=== PATIENT | female | born 1935 | race Two or more races ===

== ENCOUNTER 2023-06-10 13:44 | Emergency (ER) | payer OTHER ==
[~2023-06-10] VITALS: Ht 157.5 cm; Wt 67.1 kg
[2023-06-10] MEDS ORDERED: METOPROLOL SUCC25 MG PO (14:05)
[2023-06-10] MEDS ORDERED: RAYOS5 MG PO (14:05)
[2023-06-10] MEDS ORDERED: LOSARTAN POTASS25 MG PO (14:05)
[2023-06-10] MEDS ORDERED: LOSARTAN POTASS50 MG PO (14:06)
[2023-06-10] MEDS ORDERED: LEVOTHYROXINE88 MC1 PO (14:07)
[2023-06-10] MEDS ORDERED: LIPITOR40 M1 PO (14:07)
== END 2023-06-10 18:08 | disposition home or self-care (01) ==
LOC: ER 13:44
PROVIDERS: General Practice
DX: J06.9 Acute upper respiratory infection, unspecified (principal); Z20.822 Contact with and (suspected) exposure to COVID-19

== ENCOUNTER 2023-08-21 13:30 | Outpatient (CLI) | payer OTHER ==
[~2023-08-21 13:30] MED LIST: LEVOTHYROXINE88 MC1 PO; LIPITOR40 M1 PO; LOSARTAN POTASS25 MG PO; LOSARTAN POTASS50 MG PO; METOPROLOL SUCC25 MG PO; RAYOS5 MG PO
== END 2023-08-21 13:33 | disposition home or self-care (01) ==
LOC: TOM 13:30
PROVIDERS: ATTEND Physical Medicine & Rehabilitation
DX: M54.2 Cervicalgia (principal); M48.02 Spinal stenosis, cervical region; M06.9 Rheumatoid arthritis, unspecified; M32.9 Systemic lupus erythematosus, unspecified

== ENCOUNTER 2023-12-08 11:18 | Outpatient (CLI) | payer OTHER | END 2023-12-08 11:23 | disposition home or self-care (01) | LOC: RAD 11:18 | PROVIDERS: ATTEND Physical Medicine & Rehabilitation | DX: M54.2 Cervicalgia (principal); M54.6 Pain in thoracic spine; M54.50 Low back pain, unspecified ==

== ENCOUNTER 2024-11-27 12:38 | Inpatient (IN) | payer OTHER ==
[~2024-11-27] VITALS: Ht 160 cm; Wt 63.5 kg
[2024-11-27] MEDS ORDERED: LEVOFLOXACIN250 MG PO (13:51)
--- NOTE | 2024-11-27 13:58 | NUR ---
PACIENTE ALERTA Y ORIENTADA X3. REFIERE VENIR POR POSIBLE INFECCION DE ORINA. REFIERE MAL OLOR AL ORINAR. ADEMAS REFIERE TENER CELULLITIS EN PIERNA DERECHA LA CUAL RECIBIO CURACION EL BRYANT DE STU CON DR. GILLETTE COSTELLO EL CUAL TAMBIEN ESTA EN TRATAMIENTO DE ANTIBIOTICO. SE ESTIMAN VITALES Y SE UBICA.
[2024-11-27] MEDS ORDERED: VANCOMYCIN HCL 1,000 MG VIAL IV SCH (15:56)
[2024-11-27] MEDS ORDERED: SODIUM CHLORIDE 0.45 % 1,000 ML IV SCH (16:00)
--- NOTE | 2024-11-27 16:06 | NUR ---
SE ORIENTA A PACIENTE SOBRE TRATAMIENTO MEDICO, REFIERE ENTENDER. SE COLECTAN MUESTRAS DE LABORATORIO BAJO MEDIDAS ASEPTICAS. SE COORDINA ALL X. PACIENTE MANEJADA POR .
[2024-11-27 16:46] LABS: HEMOGLOBIN 12.4 g/dL (12.0-15.00); MEAN CORPUSCULAR HEMOGLOBIN 28.7 pg (27.00-32.0); MEAN CORPUSCULAR HGB CONC 33.4 g/dl (32.0-36.0); PLATELET COUNT 185 K/uL (150-450)
[2024-11-27] MEDS ORDERED: LOSARTAN POTASSIUM 25 MG TABLET PO SCH (17:00)
[2024-11-27] MEDS ORDERED: ATORVASTATIN CALCIUM 20 MG TABLET PO SCH (17:00)
[2024-11-27] MEDS ORDERED: ENOXAPARIN SODIUM 40 MG/0.4 ML SYRINGE SUBCUTANEO SCH (17:00)
[2024-11-27 17:02] LABS: RED CELL DISTRIBUTION WIDTH 18.2 % (11.5-14.5)
[2024-11-27 17:40] LABS: INR 1.09; PARTIAL THROMBOPLASTIN TIME 24.3 SECONDS (22.0-34.0); PROTHROMBIN TIME 11.8 SECONDS (9.0-11.5)
[2024-11-27 17:49] LABS: ERYTHROCYTE SEDIMENTATION RATE 119 mm/hr
[2024-11-27 17:54] LABS: ALBUMIN 2.9 gm/dL (3.4-5.0); BILIRUBIN TOTAL 0.98 mg/dL (0.3-1.2); CALCIUM 8.9 mg/dL (8.5-10.1); CREATININE SERUM 1.08 mg/dL (0.55-1.02); GFR 48.1; GLOBULINA 4.9 G/DL (2.4-3.5); POTASSIUM 4.54 mEq/L (3.5-5.1); TOTAL PROTEIN 7.8 gm/dL (6.4-8.2)
[2024-11-27] MEDS ORDERED: PIPERACILLIN/TAZOBACTAM SODIUM 3.375 GM in 0.9 % SODIUM CHLORIDE 100 ML IV SCH (18:00)
[2024-11-27 20:26] LABS: URINE APPEARANCE Cloudy; URINE BILIRRUBIN Negative (NEGATIVE); URINE BLOOD Trace; URINE COLOR Yellow; URINE KETONE Negative (NEGATIVE); URINE LEUKOCYTE Moderate; URINE NITRATE Positive
[2024-11-27 20:30] LABS: URINE EPITHELIAL CELLS 4.4 uL (0.0-38.8); URINE RBC 2.5 uL (0.0-20.8); URINE WBC 1053.5 uL (0.0-23.2)
[2024-11-27 20:54] LABS: URINE BACTERIA > 9821.5 uL (0.0-1933); URINE CAST 0.14 uL (0.0-1.40); URINE GLUCOSE 100 MG/DL (NEGATIVE); URINE PROTEIN 100 (NEGATIVE)
[2024-11-27] MEDS ORDERED: METHYLPREDNISOLONE SOD SUCC 40 MG VIAL IV SCH (21:00)
[2024-11-27] MEDS ORDERED: FAMOTIDINE/PF 20 MG/2 ML VIAL IV SCH (21:00)
[2024-11-27 21:51] VITALS: BP 130/71; O2SAT 97
[2024-11-28 03:42] VITALS: BP 101/58; BP 133/73
[2024-11-28] MEDS ORDERED: LEVOTHYROXINE SODIUM 100 MCG TABLET PO SCH (06:00)
[2024-11-28 06:03] LABS: ALBUMIN 2.3 gm/dL (3.4-5.0); BILIRUBIN TOTAL 0.73 mg/dL (0.3-1.2); CALCIUM 8.4 mg/dL (8.5-10.1); CREATININE SERUM 1.08 mg/dL (0.55-1.02); GFR 48.1; GLOBULINA 4.1 G/DL (2.4-3.5); PHOSPHOROUS 3.9 mg/dL (2.5-4.9); POTASSIUM 4.66 mEq/L (3.5-5.1); TOTAL PROTEIN 6.4 gm/dL (6.4-8.2); TSH 3.65 uIU/mL (0.358-3.74)
[2024-11-28 06:04] LABS: C-REACTIVE PROTEIN 8.1 MG/DL (0.00-0.29)
[2024-11-28] MEDS ORDERED: METOPROLOL SUCCINATE 50 MG TAB.SR.24H PO SCH (09:00)
[2024-11-28] MEDS ORDERED: LOSARTAN POTASSIUM 50 MG TABLET PO SCH (09:00)
[2024-11-28 09:15] VITALS: BP 119/72
[2024-11-28 09:26] LABS: HEMATOCRIT 33.8 % (36.0-45.00); HEMOGLOBIN 11.4 g/dL (12.0-15.00); MEAN CELL VOLUME 86.2 fL (80.00-100.00); MEAN CORPUSCULAR HEMOGLOBIN 29.1 pg (27.00-32.0); MEAN CORPUSCULAR HGB CONC 33.8 g/dl (32.0-36.0); PLATELET COUNT 171 K/uL (150-450); RED BLOOD COUNT 3.92 M/uL (4.00-6.00); RED CELL DISTRIBUTION WIDTH 18.2 % (11.5-14.5)
[2024-11-28 19:22] VITALS: BP 146/76; O2SAT 95
[2024-11-28] MEDS ORDERED: LINEZOLID IN DEXTROSE 5% 600 MG/300 ML PIGGYBAG IV SCH (21:00)
[2024-11-29 03:23] VITALS: BP 130/70
[2024-11-29 07:05] LABS: HEMATOCRIT 31.3 % (36.0-45.00); HEMOGLOBIN 10.8 g/dL (12.0-15.00); MEAN CORPUSCULAR HEMOGLOBIN 29.6 pg (27.00-32.0); MEAN CORPUSCULAR HGB CONC 34.4 g/dl (32.0-36.0); PLATELET COUNT 165 K/uL (150-450); RED BLOOD COUNT 3.64 M/uL (4.00-6.00); RED CELL DISTRIBUTION WIDTH 17.9 % (11.5-14.5)
[2024-11-29 07:58] LABS: CALCIUM 8.5 mg/dL (8.5-10.1); CREATININE SERUM 1.24 mg/dL (0.55-1.02); GFR 41.01; MAGNESIUM 1.9 mg/dL (1.8-2.4); POTASSIUM 4.76 mEq/L (3.5-5.1)
[2024-11-29] MEDS ORDERED: LACTOBACILLUS ACIDOPHILUS 1 CAP CAP PO SCH (09:00)
[2024-11-29] MEDS ORDERED: PREDNISONE 10 MG TABLET PO SCH (09:00)
[2024-11-29] MEDS ORDERED: EMOLLIENTS 6 OZ BOTTLE TOP SCH (09:00)
[2024-11-29] MEDS ORDERED: CHLORHEXIDINE GLUCONATE 120 ML BOTTLE TOP SCH (09:00)
[2024-11-29 09:07] VITALS: BP 128/67; O2SAT 99
[2024-11-29 17:05] VITALS: BP 137/80
[2024-11-30 01:08] VITALS: BP 143/79
[2024-11-30 09:13] VITALS: BP 152/72; O2SAT 99
[2024-11-30 10:08] LABS: COMPLEMENT C4 25 mg/dL (12-38)
[2024-11-30 14:09] LABS: COMPLEMENT C3 143 mg/dL (82-167)
[2024-11-30] MEDS ORDERED: LACTOBACILLUS ACIDOPHILUS 1 CAP CAP PO SCH (17:00)
[2024-11-30 18:17] VITALS: BP 160/90
[2024-11-30] MEDS ORDERED: LINEZOLID 600 MG TABLET PO SCH (21:00)
[2024-12-01 01:42] VITALS: BP 150/77
[2024-12-01 06:21] LABS: HEMATOCRIT 33.3 % (36.0-45.00); HEMOGLOBIN 11.2 g/dL (12.0-15.00); MEAN CELL VOLUME 86.7 fL (80.00-100.00); MEAN CORPUSCULAR HEMOGLOBIN 29.2 pg (27.00-32.0); MEAN CORPUSCULAR HGB CONC 33.7 g/dl (32.0-36.0); PLATELET COUNT 182 K/uL (150-450); RED BLOOD COUNT 3.84 M/uL (4.00-6.00); RED CELL DISTRIBUTION WIDTH 17.7 % (11.5-14.5)
[2024-12-01 07:00] LABS: ALBUMIN 2.4 gm/dL (3.4-5.0); BILIRUBIN TOTAL 0.75 mg/dL (0.3-1.2); CALCIUM 8.4 mg/dL (8.5-10.1); CREATININE SERUM 1.22 mg/dL (0.55-1.02); GFR 41.79; MAGNESIUM 1.9 mg/dL (1.8-2.4); PHOSPHOROUS 3.6 mg/dL (2.5-4.9); POTASSIUM 4.33 mEq/L (3.5-5.1); TOTAL PROTEIN 6.4 gm/dL (6.4-8.2)
[2024-12-01 07:08] LABS: C-REACTIVE PROTEIN 1.89 MG/DL (0.00-0.29)
[2024-12-01 09:33] VITALS: BP 133/62
[2024-12-01] MEDS ORDERED: CHOLESTYRAMINE/ASPARTAME LIGHT 4 G/PKT PACKET PO PRN (12:15)
[2024-12-01] MEDS ORDERED: CIPROFLOXACIN IN 5 % DEXTROSE 400 MG/200 ML PIGGYBAG IV SCH (17:00)
[2024-12-01 17:33] VITALS: BP 158/90; O2SAT 98
[2024-12-01] MEDS ORDERED: BENZONATATE 100 MG CAPSULE PO PRN (21:00)
[2024-12-02 08:51] VITALS: BP 161/84
[2024-12-02] MEDS ORDERED: FAMOtidine 20 MG TABLET PO SCH (09:00)
[2024-12-02] MEDS ORDERED: FUROsemide 20 MG/2 ML VIAL IV STA (11:28)
[2024-12-02] MEDS ORDERED: HYDROCORTISONE 2.5% 30 GM TUBE TOP SCH (13:00)
[2024-12-02 18:36] VITALS: BP 134/73
[2024-12-02] MEDS ORDERED: CEFEPIME HCL 1,000 MG VIAL IV SCH (21:00)
[2024-12-02] MEDS ORDERED: FUROsemide 20 MG/2 ML VIAL IV SCH (21:00)
[2024-12-02] MEDS ORDERED: CIPROFLOXACIN IN 5 % DEXTROSE 400 MG/200 ML PIGGYBAG IV SCH (21:00)
[2024-12-03 02:59] VITALS: BP 140/73; O2SAT 99
[2024-12-03] MEDS ORDERED: TETRACAINE/BENZOCAINE/BUTAMBEN 56 ML BOTTLE TOP NR (08:45)
[2024-12-03] MEDS ORDERED: LIDOCAINE HCL 2% JELLY 6 ML SYRINGE MM NR (08:45)
[2024-12-03 09:20] VITALS: BP 121/73; O2SAT 95
[2024-12-03] MEDS ORDERED: LOPERAMIDE HCL 2 MG CAPSULE PO STA (11:47)
[2024-12-03] MEDS ORDERED: CHOLESTYRAMINE/ASPARTAME LIGHT 4 G/PKT PACKET PO STA (11:47)
[2024-12-03] MEDS ORDERED: FUROsemide 20 MG/2 ML VIAL IV SCH (13:00)
[2024-12-03] MEDS ORDERED: CHOLESTYRAMINE/ASPARTAME LIGHT 4 G/PKT PACKET PO SCH (17:00)
[2024-12-03 17:37] VITALS: BP 135/67
[2024-12-03] MEDS ORDERED: LOPERAMIDE HCL 2 MG CAPSULE PO SCH (21:00)
[2024-12-04 01:52] VITALS: BP 125/64; O2SAT 98
[2024-12-04 08:25] LABS: HEMATOCRIT 31.9 % (36.0-45.00); HEMOGLOBIN 10.9 g/dL (12.0-15.00); MEAN CELL VOLUME 85.3 fL (80.00-100.00); MEAN CORPUSCULAR HEMOGLOBIN 29.2 pg (27.00-32.0); MEAN CORPUSCULAR HGB CONC 34.2 g/dl (32.0-36.0); PLATELET COUNT 162 K/uL (150-450); RED BLOOD COUNT 3.74 M/uL (4.00-6.00); RED CELL DISTRIBUTION WIDTH 17.6 % (11.5-14.5)
[2024-12-04 08:46] LABS: CALCIUM 8.1 mg/dL (8.5-10.1); CREATININE SERUM 1.08 mg/dL (0.55-1.02); GFR 48.1; MAGNESIUM 1.7 mg/dL (1.8-2.4); PHOSPHOROUS 2.8 mg/dL (2.5-4.9); POTASSIUM 3.68 mEq/L (3.5-5.1)
[2024-12-04 09:43] VITALS: BP 123/74; O2SAT 98
[2024-12-04] MEDS ORDERED: CLONAZEPAM 0.5 MG TABLET PO SCH (17:00)
[2024-12-04 18:00] VITALS: BP 115/74; O2SAT 98
[2024-12-04 19:00] VITALS: BP 158/82; O2SAT 98
[2024-12-05] VITALS: BP 118/64; O2SAT 96
[2024-12-05 08:00] VITALS: BP 122/78; O2SAT 96
[2024-12-05] MEDS ORDERED: FUROsemide 20 MG/2 ML VIAL IV SCH (09:00)
[2024-12-05 16:00] VITALS: BP 143/74; O2SAT 96
[2024-12-06] VITALS: BP 117/62; O2SAT 95
[2024-12-06 06:51] LABS: HEMOGLOBIN 11.5 g/dL (12.0-15.00); MEAN CELL VOLUME 84.8 fL (80.00-100.00); MEAN CORPUSCULAR HEMOGLOBIN 29.5 pg (27.00-32.0); MEAN CORPUSCULAR HGB CONC 34.8 g/dl (32.0-36.0); PLATELET COUNT 135 K/uL (150-450); RED CELL DISTRIBUTION WIDTH 17.4 % (11.5-14.5)
[2024-12-06 07:29] LABS: ERYTHROCYTE SEDIMENTATION RATE 110 mm/hr
[2024-12-06 07:45] LABS: ALBUMIN 2.3 gm/dL (3.4-5.0); BILIRUBIN TOTAL 0.67 mg/dL (0.3-1.2); CALCIUM 8.2 mg/dL (8.5-10.1); CREATININE SERUM 1.32 mg/dL (0.55-1.02); GFR 38.16; GLOBULINA 4.1 G/DL (2.4-3.5); MAGNESIUM 1.7 mg/dL (1.8-2.4); PHOSPHOROUS 2.7 mg/dL (2.5-4.9); POTASSIUM 3.93 mEq/L (3.5-5.1); TOTAL PROTEIN 6.4 gm/dL (6.4-8.2)
[2024-12-06 08:00] VITALS: BP 109/67; O2SAT 96
[2024-12-06 08:15] LABS: C-REACTIVE PROTEIN 2.25 MG/DL (0.00-0.29)
[2024-12-06] MEDS ORDERED: 0.9 % SODIUM CHLORIDE 500 ML IV SCH (08:30)
[2024-12-06] MEDS ORDERED: MAGNESIUM SULFATE IN WATER 50 ML IV NR (09:00)
[2024-12-06 16:31] VITALS: BP 130/82; O2SAT 97
[2024-12-07 00:34] VITALS: BP 116/77; O2SAT 99
[2024-12-07 08:00] VITALS: BP 132/78; O2SAT 98
[2024-12-07 08:35] LABS: CALCIUM 8.3 mg/dL (8.5-10.1); CREATININE SERUM 1.07 mg/dL (0.55-1.02); GFR 48.62; MAGNESIUM 2.2 mg/dL (1.8-2.4); PHOSPHOROUS 2.5 mg/dL (2.5-4.9); POTASSIUM 3.96 mEq/L (3.5-5.1)
[2024-12-07] MEDS ORDERED: CIPROFLOXACIN IN 5 % DEXTROSE 400 MG/200 ML PIGGYBAG IV SCH (09:00)
[2024-12-07 17:54] VITALS: BP 126/80; O2SAT 97
[2024-12-07] MEDS ORDERED: CLONAZEPAM 0.5 MG TABLET PO SCH (21:00)
[2024-12-08 01:01] VITALS: BP 105/67; O2SAT 100
[2024-12-08 08:00] VITALS: BP 116/82; O2SAT 100
[2024-12-08] MEDS ORDERED: PREDNISONE 5 MG TABLET PO SCH (09:00)
[2024-12-08 17:00] VITALS: BP 98/64; O2SAT 99
[2024-12-08] MEDS ORDERED: MAGNESIUM HYDROXIDE BC SCH (17:00)
[2024-12-08] MEDS ORDERED: ALUMINUM HYDROXIDE BC SCH (17:00)
[2024-12-08] MEDS ORDERED: SIMETHICONE BC SCH (17:00)
[2024-12-08] MEDS ORDERED: NYSTATIN BC SCH (17:00)
[2024-12-08] MEDS ORDERED: [UNRECOGNIZED DRUG - OTHER] BC SCH (17:00)
[2024-12-08] MEDS ORDERED: DIPHENHYDRAMINE HCL 150 MG BC SCH (17:00)
[2024-12-09 01:03] VITALS: BP 133/76; O2SAT 98
[2024-12-09 08:17] VITALS: BP 108/53; O2SAT 99
[2024-12-09 08:21] LABS: CALCIUM 8.1 mg/dL (8.5-10.1); CREATININE SERUM 1.32 mg/dL (0.55-1.02); GFR 38.16; MAGNESIUM 2.1 mg/dL (1.8-2.4); PHOSPHOROUS 2.3 mg/dL (2.5-4.9); POTASSIUM 4.25 mEq/L (3.5-5.1)
[2024-12-09] MEDS ORDERED: POTASSIUM PHOS,M-BASIC-D-BASIC 3 MM/ML VIAL IV NR (10:30)
[2024-12-09] MEDS ORDERED: TRIAMCINOLONE ACETONIDE 5 GM TUBE TOP SCH (13:00)
[2024-12-09] MEDS ORDERED: CLOTRIMAZOLE 10 MG TROCHE MM SCH (13:00)
[2024-12-09] MEDS ORDERED: LIPITOR20 MG PO (16:06)
[2024-12-09] MEDS ORDERED: TRIAMCINOLONE AC5 GM TOP (16:06)
[2024-12-09] MEDS ORDERED: INTESTINEX680 M1 PO (16:06)
[2024-12-09] MEDS ORDERED: COZAAR50 MG PO (16:06)
[2024-12-09] MEDS ORDERED: LOSARTAN POTASS25 MG PO (16:06)
[2024-12-09] MEDS ORDERED: SYNTHROID100 MCG PO (16:06)
[2024-12-09] MEDS ORDERED: PREDNISONE 5MG PO (16:06)
[2024-12-09] MEDS ORDERED: TOPROL XL50 M1 PO (16:06)
[2024-12-09] MEDS ORDERED: BENZONATATE100 MG PO (16:06)
[2024-12-09] MEDS ORDERED: CIPRO500 MG PO (16:06)
[2024-12-09] MEDS ORDERED: CLOTRIMAZOLE10 MG MM (16:06)
[2024-12-09] MEDS ORDERED: LINEZOLID600 MG PO (16:06)
[2024-12-09] MEDS ORDERED: CHOLESTYRAMINE L4 GM PO (16:06)
== END 2024-12-09 17:20 | disposition home or self-care (01) | DRG 981 ==
LOC: ER 12:40 → MEDJ 17:18 → SURH 12-04 16:27
PROVIDERS: General Practice; Internal Medicine; ADMIT Internal Medicine Geriatric Medicine; ATTEND Internal Medicine Geriatric Medicine
PROC: B54BZZZ Ultrasonography of Right Lower Extremity Veins (ICD-10-PCS; 2024-11-28)
PROC: B24BZZZ Ultrasonography of Heart with Aorta (ICD-10-PCS; 2024-11-28)
PROC: 0JDN0ZZ Extraction of Right Lower Leg Subcutaneous Tissue and Fascia, Open Approach (ICD-10-PCS; principal; 2024-12-02)
PROC: 02HV33Z Insertion of Infusion Device into Superior Vena Cava, Percutaneous Approach (ICD-10-PCS; 2024-12-03)
PROC: 0JDN0ZZ Extraction of Right Lower Leg Subcutaneous Tissue and Fascia, Open Approach (ICD-10-PCS; 2024-12-04)
PROC: 0JDN0ZZ Extraction of Right Lower Leg Subcutaneous Tissue and Fascia, Open Approach (ICD-10-PCS; 2024-12-07)
DX: I83.018 Varicose veins of right lower extremity with ulcer other part of lower leg (principal); I50.33 Acute on chronic diastolic (congestive) heart failure; D68.62 Lupus anticoagulant syndrome; L03.115 Cellulitis of right lower limb; L97.819 Non-pressure chronic ulcer of other part of right lower leg with unspecified severity; N39.0 Urinary tract infection, site not specified; I13.0 Hypertensive heart and chronic kidney disease with heart failure and stage 1 through stage 4 chronic kidney disease, or unspecified chronic kidney disease; E87.1 Hypo-osmolality and hyponatremia; E03.9 Hypothyroidism, unspecified; B96.5 Pseudomonas (aeruginosa) (mallei) (pseudomallei) as the cause of diseases classified elsewhere; B95.2 Enterococcus as the cause of diseases classified elsewhere; B96.20 Unspecified Escherichia coli [E. coli] as the cause of diseases classified elsewhere; F43.20 Adjustment disorder, unspecified; N18.9 Chronic kidney disease, unspecified; Z95.0 Presence of cardiac pacemaker; E78.5 Hyperlipidemia, unspecified; I73.9 Peripheral vascular disease, unspecified

== ENCOUNTER 2024-12-20 09:29 | Outpatient (CLI) | payer OTHER ==
[~2024-12-20 09:29] MED LIST changes: +BENZONATATE100 MG PO; +CHOLESTYRAMINE L4 GM PO; +CIPRO500 MG PO; +CLOTRIMAZOLE10 MG MM; +COZAAR50 MG PO; +INTESTINEX680 M1 PO; +LEVOFLOXACIN250 MG PO; +LINEZOLID600 MG PO; +LIPITOR20 MG PO; +PREDNISONE 5MG PO; +SYNTHROID100 MCG PO; +TOPROL XL50 M1 PO; +TRIAMCINOLONE AC5 GM TOP
[2024-12-20 10:35] LABS: HEMATOCRIT 34.1 % (36.0-45.00); HEMOGLOBIN 11.2 g/dL (12.0-15.00); MEAN CELL VOLUME 86.5 fL (80.00-100.00); MEAN CORPUSCULAR HEMOGLOBIN 28.5 pg (27.00-32.0); MEAN CORPUSCULAR HGB CONC 32.9 g/dl (32.0-36.0); RED BLOOD COUNT 3.94 M/uL (4.00-6.00); RED CELL DISTRIBUTION WIDTH 17.8 % (11.5-14.5)
[2024-12-20 10:39] LABS: PLATELET COUNT 110 K/uL (150-450)
[2024-12-20 11:46] LABS: MANUAL PLATELET COUNT 260
[2024-12-20 11:50] LABS: COL EPI 122 SECONDS (82-175)
== END 2024-12-20 09:30 | disposition home or self-care (01) ==
LOC: LAB 09:29
PROVIDERS: ATTEND Anesthesiology
DX: D69.6 Thrombocytopenia, unspecified (principal)

== ENCOUNTER 2024-12-20 18:52 | Inpatient (IN) | payer OTHER ==
[~2024-12-20] VITALS: Ht 157.5 cm; Wt 63.5 kg
--- NOTE | 2024-12-20 19:00 | NUR ---
PTE ALERTA Y ORIENTADA X3, LLEGA A ER ENVIADA POR DR.LOPEZ COSTELLO QUIEN HABLO CON PARA ADMITIR A PTE POR INFLAMACION Y ENROJECIMIENTO EN B[facility]ZO [facility]. SE HUBER SV Y SE UBICA
[2024-12-20] MEDS ORDERED: 0.9 % SODIUM CHLORIDE 1,000 ML IV SCH ×2 (19:30→20:30)
[2024-12-20] MEDS ORDERED: TRAMADOL HCL 50 MG TABLET PO ONE (19:30)
--- NOTE | 2024-12-20 20:00 | NUR ---
PTE ALERTA Y ORIENTADA X3, ANU MONDRAGON ORIENTA SOBRE TX MEDICO Y REFIERE ACEPTAR. CANALIZA Y COLECTA MUESTRAS DE LAB BAJO MEDIDAS ASEPTICAS. ADMINSITRA MEDS TRISTAN ORDEN MEDICA. PEND A REALIZAR DUPLEX EN AM.
[2024-12-20 20:26] LABS: RED CELL DISTRIBUTION WIDTH 17.4 % (11.5-14.5)
[2024-12-20 20:35] LABS: HEMATOCRIT 32.3 % (36.0-45.00); HEMOGLOBIN 10.9 g/dL (12.0-15.00); MEAN CELL VOLUME 85.9 fL (80.00-100.00); MEAN CORPUSCULAR HGB CONC 33.8 g/dl (32.0-36.0); RED BLOOD COUNT 3.76 M/uL (4.00-6.00)
[2024-12-20 20:36] LABS: ERYTHROCYTE SEDIMENTATION RATE 102 mm/hr; PLATELET COUNT 120 K/uL (150-450)
[2024-12-20] MEDS ORDERED: MEROPENEM 500 MG/VIAL VIAL IV SCH (20:37)
[2024-12-20] MEDS ORDERED: ACETAMINOPHEN 500 MG GEL..CAP PO PRN (20:45)
[2024-12-20 20:51] LABS: D DIMER 1.86 MG/L; PARTIAL THROMBOPLASTIN TIME 24.9 SECONDS (22.0-34.0)
[2024-12-20 20:54] LABS: ALBUMIN 2.5 gm/dL (3.4-5.0); BILIRUBIN TOTAL 0.46 mg/dL (0.3-1.2); CALCIUM 8.6 mg/dL (8.5-10.1); CREATININE SERUM 1.11 mg/dL (0.55-1.02); GFR 46.5; GLOBULINA 5.1 G/DL (2.4-3.5); POTASSIUM 4.97 mEq/L (3.5-5.1); TOTAL PROTEIN 7.6 gm/dL (6.4-8.2)
[2024-12-20 20:55] LABS: C-REACTIVE PROTEIN 7.09 MG/DL (0.00-0.29)
[2024-12-20 20:58] LABS: PROTHROMBIN TIME 13.3 SECONDS (9.0-11.5)
[2024-12-20 20:59] LABS: INR 1.24
[2024-12-20] MEDS ORDERED: LINEZOLID IN DEXTROSE 5% 300 ML IV SCH (21:00)
[2024-12-20 22:01] VITALS: BP 110/64; O2SAT 98
[2024-12-21 05:10] VITALS: BP 95/45; O2SAT 97
[2024-12-21] MEDS ORDERED: LEVOTHYROXINE SODIUM 100 MCG TABLET PO SCH (06:00)
[2024-12-21 06:49] LABS: HEMATOCRIT 27.2 % (36.0-45.00); HEMOGLOBIN 9.1 g/dL (12.0-15.00); MEAN CELL VOLUME 86.2 fL (80.00-100.00); MEAN CORPUSCULAR HEMOGLOBIN 28.9 pg (27.00-32.0); MEAN CORPUSCULAR HGB CONC 33.5 g/dl (32.0-36.0); RED BLOOD COUNT 3.15 M/uL (4.00-6.00); RED CELL DISTRIBUTION WIDTH 17.8 % (11.5-14.5)
[2024-12-21 06:51] LABS: PLATELET COUNT 107 K/uL (150-450)
[2024-12-21 07:14] LABS: ALBUMIN 2.2 gm/dL (3.4-5.0); BILIRUBIN TOTAL 0.57 mg/dL (0.3-1.2); CALCIUM 7.8 mg/dL (8.5-10.1); CREATININE SERUM 1.03 mg/dL (0.55-1.02); GFR 50.69; GLOBULINA 4.1 G/DL (2.4-3.5); MAGNESIUM 1.7 mg/dL (1.8-2.4); PHOSPHOROUS 2.3 mg/dL (2.5-4.9); POTASSIUM 4.91 mEq/L (3.5-5.1); TOTAL PROTEIN 6.3 gm/dL (6.4-8.2)
[2024-12-21 07:17] LABS: TSH 21.3 uIU/mL (0.358-3.74)
[2024-12-21 07:43] LABS: MANUAL PLATELET COUNT 200
[2024-12-21 08:47] VITALS: BP 107/64; O2SAT 97
[2024-12-21] MEDS ORDERED: ATORVASTATIN CALCIUM 10 MG TABLET PO SCH (09:00)
[2024-12-21] MEDS ORDERED: PREDNISONE 5 MG TABLET PO SCH (09:00)
[2024-12-21] MEDS ORDERED: LACTOBACILLUS ACIDOPHILUS 1 CAP CAP PO SCH (09:00)
[2024-12-21] MEDS ORDERED: PANTOPRAZOLE SODIUM 40 MG/VIAL VIAL IV SCH (09:00)
[2024-12-21] MEDS ORDERED: LOSARTAN POTASSIUM 50 MG TABLET PO SCH (09:00)
[2024-12-21] MEDS ORDERED: ENOXAPARIN SODIUM 30 MG/0.3 ML SYRINGE SUBCUTANEO SCH (09:00)
[2024-12-21] MEDS ORDERED: METOPROLOL SUCCINATE 25 MG TAB.SR.24H PO SCH (09:00)
[2024-12-21] MEDS ORDERED: MAGNESIUM SULFATE IN WATER 50 ML IV NR (09:30)
[2024-12-21] MEDS ORDERED: SOD FERRIC GLUC COMPLX/SUCROSE 62.5 MG in 0.9 % SODIUM CHLORIDE 50 ML IV SCH (10:30)
[2024-12-21] MEDS ORDERED: POTASSIUM PHOS,M-BASIC-D-BASIC 3 MM/ML VIAL IV NR (10:30)
[2024-12-21 17:44] VITALS: BP 90/50; O2SAT 98
[2024-12-21] MEDS ORDERED: ENOXAPARIN SODIUM 80 MG/0.8 ML SYRINGE SUBCUTANEO SCH (21:00)
[2024-12-22 02:42] VITALS: BP 107/60; O2SAT 97
[2024-12-22] MEDS ORDERED: TETRACAINE/BENZOCAINE/BUTAMBEN 56 ML BOTTLE TOP STA (08:13)
[2024-12-22] MEDS ORDERED: SOD FERRIC GLUC COMPLX/SUCROSE 62.5 MG in 0.9 % SODIUM CHLORIDE 50 ML IV SCH (09:00)
[2024-12-22 09:55] VITALS: BP 165/76; O2SAT 91
[2024-12-22] MEDS ORDERED: ALBUMIN HUMAN 100 ML VIAL IV SCH (13:00)
[2024-12-22] MEDS ORDERED: FUROsemide 20 MG/2 ML VIAL IV SCH (13:00)
[2024-12-22 18:30] VITALS: BP 107/77
[2024-12-22 18:55] VITALS: O2SAT 99
[2024-12-22 21:51] VITALS: O2SAT 95
[2024-12-23 01:47] VITALS: BP 132/67; O2SAT 95
[2024-12-23] MEDS ORDERED: LEVOTHYROXINE SODIUM 125 MCG TABLET PO SCH (06:00)
[2024-12-23 06:02] VITALS: O2SAT 97
[2024-12-23 08:12] VITALS: BP 154/73
[2024-12-23 08:52] LABS: HEMATOCRIT 26.5 % (36.0-45.00); HEMOGLOBIN 9.2 g/dL (12.0-15.00); MEAN CELL VOLUME 85.6 fL (80.00-100.00); MEAN CORPUSCULAR HEMOGLOBIN 29.6 pg (27.00-32.0); MEAN CORPUSCULAR HGB CONC 34.6 g/dl (32.0-36.0); PLATELET COUNT 132 K/uL (150-450); RED CELL DISTRIBUTION WIDTH 18.3 % (11.5-14.5)
[2024-12-23 09:39] VITALS: O2SAT 96
[2024-12-23 09:46] LABS: CREATININE SERUM 1.21 mg/dL (0.55-1.02); GFR 42.09; MAGNESIUM 2.2 mg/dL (1.8-2.4); PHOSPHOROUS 2.7 mg/dL (2.5-4.9); POTASSIUM 4.49 mEq/L (3.5-5.1); T4 TOTAL 5.38 UG/DL (4.8-13.9)
[2024-12-23 09:49] LABS: C-REACTIVE PROTEIN 6.65 MG/DL (0.00-0.29); TSH 18.7 uIU/mL (0.358-3.74)
[2024-12-23] MEDS ORDERED: CLONAZEPAM 0.5 MG TABLET PO SCH (11:03)
[2024-12-23 13:22] VITALS: O2SAT 100
[2024-12-23 20:21] VITALS: BP 104/77
[2024-12-24 02:01] VITALS: BP 102/62; O2SAT 97
[2024-12-24 05:22] VITALS: O2SAT 97
[2024-12-24 08:00] VITALS: BP 144/87; O2SAT 94
[2024-12-24 10:49] VITALS: O2SAT 91
[2024-12-24 17:46] VITALS: O2SAT 97
[2024-12-24] MEDS ORDERED: LINEZOLID 600 MG TABLET PO SCH (21:00)
[2024-12-25] VITALS (9 sets, daily range): BP systolic 107–150; BP diastolic 37–68; O2SAT 93–100
[2024-12-25] MEDS ORDERED: PANTOPRAZOLE SODIUM 40 MG TABLET.DR PO SCH (09:00)
[2024-12-25] MEDS ORDERED: TETRACAINE/BENZOCAINE/BUTAMBEN 56 ML BOTTLE TOP STA (10:13)
[2024-12-26 02:27] VITALS: BP 160/85; O2SAT 95
[2024-12-26 03:45] VITALS: O2SAT 90
[2024-12-26 08:11] LABS: HEMATOCRIT 29.7 % (36.0-45.00); MEAN CELL VOLUME 87.1 fL (80.00-100.00); MEAN CORPUSCULAR HEMOGLOBIN 29.2 pg (27.00-32.0); MEAN CORPUSCULAR HGB CONC 33.6 g/dl (32.0-36.0); PLATELET COUNT 180 K/uL (150-450); RED BLOOD COUNT 3.41 M/uL (4.00-6.00); RED CELL DISTRIBUTION WIDTH 18.3 % (11.5-14.5)
[2024-12-26 08:21] LABS: ALBUMIN 2.6 gm/dL (3.4-5.0); BILIRUBIN TOTAL 1.41 mg/dL (0.3-1.2); CALCIUM 8.1 mg/dL (8.5-10.1); CREATININE SERUM 0.92 mg/dL (0.55-1.02); ERYTHROCYTE SEDIMENTATION RATE 84 mm/hr; GFR 57.74; PHOSPHOROUS 2.7 mg/dL (2.5-4.9); POTASSIUM 5.37 mEq/L (3.5-5.1); TOTAL PROTEIN 6.6 gm/dL (6.4-8.2)
[2024-12-26 08:26] LABS: C-REACTIVE PROTEIN 5.47 MG/DL (0.00-0.29)
[2024-12-26 09:46] VITALS: O2SAT 100
[2024-12-26 09:57] VITALS: BP 142/78; O2SAT 98
[2024-12-26] MEDS ORDERED: VANCOMYCIN HCL 125 MG CAPSULE PO SCH (17:00)
[2024-12-27 05:54] VITALS: BP 160/100
[2024-12-27 07:10] LABS: ALBUMIN 2.8 gm/dL (3.4-5.0); BILIRUBIN TOTAL 1.69 mg/dL (0.3-1.2); CALCIUM 8.5 mg/dL (8.5-10.1); CREATININE SERUM 0.99 mg/dL (0.55-1.02); GFR 53.06; GLOBULINA 4.5 G/DL (2.4-3.5); PHOSPHOROUS 2.8 mg/dL (2.5-4.9); POTASSIUM 5.24 mEq/L (3.5-5.1); TOTAL PROTEIN 7.3 gm/dL (6.4-8.2)
[2024-12-27 08:57] VITALS: O2SAT 99
[2024-12-27] MEDS ORDERED: EMOLLIENT COMBINATION NO.92 2.5 OZ BOTTLE TOP SCH (09:00)
[2024-12-27] MEDS ORDERED: CLOTRIMAZOLE 10 MG TROCHE MM SCH (09:00)
[2024-12-27] MEDS ORDERED: TETRACAINE/BENZOCAINE/BUTAMBEN 56 ML BOTTLE TOP SCH (09:00)
[2024-12-27 09:28] VITALS: BP 133/80
[2024-12-27] MEDS ORDERED: CLONAZEPAM 0.5 MG TABLET PO PRN (10:06)
[2024-12-27] MEDS ORDERED: COLLAGENASE CLOSTRIDIUM HIST. 30 GM TUBE TOP SCH (10:31)
[2024-12-27] MEDS ORDERED: [UNRECOGNIZED DRUG - OTHER] MM SCH (13:00)
[2024-12-27] MEDS ORDERED: TRIAMCINOLONE ACETONIDE 5 GM TUBE TOP SCH (13:00)
[2024-12-27] MEDS ORDERED: SIMETH MM SCH (13:00)
[2024-12-27] MEDS ORDERED: MAG HYDROX MM SCH (13:00)
[2024-12-27] MEDS ORDERED: ALUMINUM HYD MM SCH (13:00)
[2024-12-27 14:07] LABS: ABG PH 7.343 (7.35-7.45); ABG PO2 80.1 mmHg (80-100); ABG pCO2 29.2 mmHg (35-45); BASE EXCESS -8.7 mmol/l; BICARBONATE 15.5 mmol/l (23-25); SaO2 94.5 %; Tco2 16.4 mmol/l
[2024-12-27 14:25] LABS: o2 21 %
[2024-12-27 14:26] LABS: allen test SATISFACTORY; puncture site RADIAL LEFT
[2024-12-27 17:36] VITALS: BP 135/69; O2SAT 95
[2024-12-27] MEDS ORDERED: FUROsemide 20 MG/2 ML VIAL IV SCH (21:00)
[2024-12-27] MEDS ORDERED: APIXABAN 2.5 MG TABLET PO SCH (21:00)
[2024-12-28 01:32] VITALS: BP 120/72
[2024-12-28 07:54] LABS: HEMATOCRIT 32.2 % (36.0-45.00); HEMOGLOBIN 10.5 g/dL (12.0-15.00); MEAN CELL VOLUME 88.3 fL (80.00-100.00); MEAN CORPUSCULAR HEMOGLOBIN 28.9 pg (27.00-32.0); MEAN CORPUSCULAR HGB CONC 32.8 g/dl (32.0-36.0); PLATELET COUNT 188 K/uL (150-450); RED BLOOD COUNT 3.64 M/uL (4.00-6.00); RED CELL DISTRIBUTION WIDTH 18.8 % (11.5-14.5)
[2024-12-28 08:27] VITALS: BP 146/74; O2SAT 98
[2024-12-28 08:57] LABS: ALBUMIN 2.7 gm/dL (3.4-5.0); BILIRUBIN TOTAL 1.29 mg/dL (0.3-1.2); BILIRUBIN,CONJUGATED 0.67 mg/dL (0.0-0.2); BILIRUBIN,UNCONJUGATED 0.62 mg/dL (0.0-0.6); CALCIUM 8.6 mg/dL (8.5-10.1); CREATININE SERUM 1.09 mg/dL (0.55-1.02); GFR 47.48; POTASSIUM 5.28 mEq/L (3.5-5.1); TOTAL PROTEIN 7.3 gm/dL (6.4-8.2)
[2024-12-28 09:04] LABS: C-REACTIVE PROTEIN 4.51 MG/DL (0.00-0.29)
[2024-12-28] MEDS ORDERED: FUROsemide 20 MG/2 ML VIAL IV SCH (17:00)
[2024-12-28] MEDS ORDERED: ALBUMIN HUMAN 100 ML VIAL IV SCH (17:00)
[2024-12-28 18:16] VITALS: BP 147/84; O2SAT 97
[2024-12-29 01:16] VITALS: BP 131/70
[2024-12-29 08:44] VITALS: BP 130/84
[2024-12-29 09:36] LABS: ALBUMIN 3.5 gm/dL (3.4-5.0); BILIRUBIN TOTAL 1.73 mg/dL (0.3-1.2); BILIRUBIN,CONJUGATED 0.8 mg/dL (0.0-0.2); BILIRUBIN,UNCONJUGATED 0.93 mg/dL (0.0-0.6); CALCIUM 9.1 mg/dL (8.5-10.1); CREATININE SERUM 1.18 mg/dL (0.55-1.02); GFR 43.33; PHOSPHOROUS 2.7 mg/dL (2.5-4.9); POTASSIUM 4.86 mEq/L (3.5-5.1); TOTAL PROTEIN 7.6 gm/dL (6.4-8.2)
[2024-12-29 17:09] VITALS: BP 135/82; O2SAT 99
[2024-12-30 00:59] VITALS: BP 121/87
[2024-12-30 07:06] LABS: ALBUMIN 3.3 gm/dL (3.4-5.0); BILIRUBIN TOTAL 1.85 mg/dL (0.3-1.2); BILIRUBIN,CONJUGATED 0.78 mg/dL (0.0-0.2); BILIRUBIN,UNCONJUGATED 1.07 mg/dL (0.0-0.6); CREATININE SERUM 0.92 mg/dL (0.55-1.02); GFR 57.74; MAGNESIUM 1.9 mg/dL (1.8-2.4); PHOSPHOROUS 2.9 mg/dL (2.5-4.9); POTASSIUM 4.85 mEq/L (3.5-5.1); TOTAL PROTEIN 7.2 gm/dL (6.4-8.2)
[2024-12-30] MEDS ORDERED: ENOXAPARIN SODIUM 80 MG/0.8 ML SYRINGE SUBCUTANEO SCH (09:00)
[2024-12-30 09:06] LABS: ABG PH 7.424 (7.35-7.45); ABG PO2 79.5 mmHg (80-100); ABG pCO2 29.1 mmHg (35-45); BASE EXCESS -4.3 mmol/l; BICARBONATE 18.7 mmol/l (23-25); SaO2 95.8 %; Tco2 19.5 mmol/l
[2024-12-30 10:00] LABS: allen test SATISFACTORY; puncture site RADIAL RIGHT
[2024-12-30 10:01] LABS: o2 28 %
[2024-12-30 13:15] LABS: LDH 304 U/L (84-246); PHOSPHOKINASE CREATININE 46 U/L (26-192)
[2024-12-30 17:09] VITALS: BP 123/80; O2SAT 99
[2024-12-30] MEDS ORDERED: 0.9 % SODIUM CHLORIDE 500 ML IV SCH (17:45)
[2024-12-31 01:08] VITALS: BP 149/69
[2024-12-31 05:24] LABS: HEMATOCRIT 28.6 % (36.0-45.00); HEMOGLOBIN 9.5 g/dL (12.0-15.00); MEAN CELL VOLUME 88.4 fL (80.00-100.00); MEAN CORPUSCULAR HEMOGLOBIN 29.2 pg (27.00-32.0); MEAN CORPUSCULAR HGB CONC 33.1 g/dl (32.0-36.0); RED BLOOD COUNT 3.24 M/uL (4.00-6.00); RED CELL DISTRIBUTION WIDTH 17.8 % (11.5-14.5)
[2024-12-31 05:33] LABS: PLATELET COUNT 119 K/uL (150-450)
[2024-12-31 06:34] LABS: BILIRUBIN TOTAL 2.06 mg/dL (0.3-1.2); CALCIUM 9.3 mg/dL (8.5-10.1); CREATININE SERUM 0.94 mg/dL (0.55-1.02); GFR 56.33; POTASSIUM 4.74 mEq/L (3.5-5.1)
[2024-12-31 09:40] VITALS: BP 99/62; O2SAT 95
[2024-12-31] MEDS ORDERED: MAG HYDROX/ALUMINUM HYD/SIMETH 30 ML BLIST.PACK PO ONE (10:01)
[2024-12-31 12:53] LABS: ERYTHROCYTE SEDIMENTATION RATE > 130 mm/hr
[2024-12-31 13:44] LABS: MANUAL PLATELET COUNT 150
[2024-12-31 18:10] VITALS: BP 155/87
[2024-12-31 19:37] LABS: PLEURAL FLUID APPEARANCE CRYSTAL CLEAR; PLEURAL FLUID COLOR YELLOW
[2024-12-31 19:49] LABS: TP PLEURAL FLUID 1.9 g/dl
[2024-12-31 20:52] LABS: MONONUCLEAR 89 %; POLYMORPHONUCLEAR 11 %
[2025-01-01 02:37] VITALS: BP 99/46; O2SAT 95
[2025-01-01 09:00] VITALS: BP 109/63
[2025-01-01 15:11] LABS: CALCIUM 8.7 mg/dL (8.5-10.1); CREATININE SERUM 0.96 mg/dL (0.55-1.02); GFR 54.98; MAGNESIUM 1.7 mg/dL (1.8-2.4); PHOSPHOROUS 2.9 mg/dL (2.5-4.9); POTASSIUM 4.46 mEq/L (3.5-5.1)
[2025-01-01] MEDS ORDERED: MAG HYDROX/ALUMINUM HYD/SIMETH 30 ML BLIST.PACK PO ONE (16:03)
[2025-01-01 18:00] VITALS: BP 134/98
[2025-01-02 02:00] VITALS: BP 138/60; O2SAT 90
[2025-01-02 09:20] VITALS: BP 161/80; O2SAT 95
[2025-01-02] MEDS ORDERED: DIPHENHYDRAMINE HCL 12.5 MG/5 ML BLIST.PACK PO NR (16:00)
[2025-01-02] MEDS ORDERED: DIPHENHYDRAMINE HCL 50 MG/ML VIAL 1ML ONE (16:37)
[2025-01-03 01:37] VITALS: BP 135/80; O2SAT 95
[2025-01-03 07:06] LABS: HEMATOCRIT 29.4 % (36.0-45.00); MEAN CELL VOLUME 87.1 fL (80.00-100.00); MEAN CORPUSCULAR HEMOGLOBIN 29.5 pg (27.00-32.0); MEAN CORPUSCULAR HGB CONC 33.9 g/dl (32.0-36.0); RED BLOOD COUNT 3.38 M/uL (4.00-6.00); RED CELL DISTRIBUTION WIDTH 18.2 % (11.5-14.5)
[2025-01-03 07:15] LABS: PLATELET COUNT 111 K/uL (150-450)
[2025-01-03 07:22] LABS: T4 TOTAL 4.43 UG/DL (4.8-13.9)
[2025-01-03 07:30] LABS: TSH 13.2 uIU/mL (0.358-3.74)
[2025-01-03 07:38] LABS: ALBUMIN 2.6 gm/dL (3.4-5.0); BILIRUBIN TOTAL 1.07 mg/dL (0.3-1.2); BILIRUBIN,CONJUGATED 0.61 mg/dL (0.0-0.2); BILIRUBIN,UNCONJUGATED 0.46 mg/dL (0.0-0.6); CALCIUM 8.7 mg/dL (8.5-10.1); CREATININE SERUM 0.87 mg/dL (0.55-1.02); GFR 61.59; MAGNESIUM 1.6 mg/dL (1.8-2.4); PHOSPHOROUS 2.7 mg/dL (2.5-4.9); POTASSIUM 4.38 mEq/L (3.5-5.1); TOTAL PROTEIN 6.9 gm/dL (6.4-8.2)
[2025-01-03 07:46] LABS: C-REACTIVE PROTEIN 4.53 MG/DL (0.00-0.29)
[2025-01-03] MEDS ORDERED: hydrOXYzine HCL 25 MG TABLET PO STA (08:09)
[2025-01-03] MEDS ORDERED: MAGNESIUM SULFATE IN WATER 50 ML IV NR (08:15)
[2025-01-03 09:28] VITALS: BP 160/90; O2SAT 97
[2025-01-03] MEDS ORDERED: LUBRIDERM ADVA177 ML TOP (14:12)
[2025-01-03] MEDS ORDERED: CLONAZEPAM0.5 MG PO (14:12)
[2025-01-03] MEDS ORDERED: CLOTRIMAZOLE10 MG MM (14:12)
[2025-01-03] MEDS ORDERED: RAYOS5 MG PO (14:12)
[2025-01-03] MEDS ORDERED: METOPROLOL SUCC25 MG PO (14:12)
[2025-01-03] MEDS ORDERED: FARXIGA10 MG PO (14:12)
[2025-01-03] MEDS ORDERED: INTESTINEX680 M1 PO (14:12)
[2025-01-03] MEDS ORDERED: LEVOTHYROXINE125 MCG PO (14:12)
[2025-01-03] MEDS ORDERED: ELIQUIS5 MG PO (14:12)
[2025-01-03] MEDS ORDERED: LOSARTAN POTASS50 MG PO (14:12)
[2025-01-03] MEDS ORDERED: PANTOPRAZOLE SO40 MG PO (14:12)
[2025-01-04 13:09] LABS: COMPLEMENT C3 85 mg/dL (82-167); COMPLEMENT C4 23 mg/dL (12-38)
== END 2025-01-03 18:23 | disposition home or self-care (01) | DRG 603 ==
LOC: ER 18:54 → MEDI 22:05 → MEDJ 12-21 17:00
PROVIDERS: General Practice; Internal Medicine; Internal Medicine Endocrinology, Diabetes & Metabolism; Internal Medicine Infectious Disease; Radiology Vascular & Interventional Radiology; ADMIT Internal Medicine Geriatric Medicine; ATTEND Internal Medicine Geriatric Medicine
PROC: B54MZZZ Ultrasonography of Right Upper Extremity Veins (ICD-10-PCS; principal; 2024-12-21)
PROC: 02HV33Z Insertion of Infusion Device into Superior Vena Cava, Percutaneous Approach (ICD-10-PCS; 2024-12-21)
PROC: 4A12X4Z Monitoring of Cardiac Electrical Activity, External Approach (ICD-10-PCS; 2024-12-21)
PROC: B54DZZZ Ultrasonography of Bilateral Lower Extremity Veins (ICD-10-PCS; 2024-12-22)
PROC: B54NZZZ Ultrasonography of Left Upper Extremity Veins (ICD-10-PCS; 2024-12-24)
PROC: BW40ZZZ Ultrasonography of Abdomen (ICD-10-PCS; 2024-12-26)
PROC: BW24ZZZ Computerized Tomography (CT Scan) of Chest and Abdomen (ICD-10-PCS; 2024-12-28)
PROC: B24BYZZ Ultrasonography of Heart with Aorta using Other Contrast (ICD-10-PCS; 2024-12-30)
DX: L03.113 Cellulitis of right upper limb (principal); I82.621 Acute embolism and thrombosis of deep veins of right upper extremity; L98.499 Non-pressure chronic ulcer of skin of other sites with unspecified severity; I10 Essential (primary) hypertension; E03.9 Hypothyroidism, unspecified; I50.9 Heart failure, unspecified; D64.9 Anemia, unspecified; B96.0 Mycoplasma pneumoniae [M. pneumoniae] as the cause of diseases classified elsewhere

== ENCOUNTER 2025-01-06 21:38 | Inpatient (IN) | payer OTHER ==
[~2025-01-06] VITALS: Ht 160 cm; Wt 68.0 kg
[~2025-01-06 21:38] MED LIST changes: +CLONAZEPAM0.5 MG PO; +ELIQUIS5 MG PO; +FARXIGA10 MG PO; +LEVOTHYROXINE125 MCG PO; +LUBRIDERM ADVA177 ML TOP; +PANTOPRAZOLE SO40 MG PO
--- NOTE | 2025-01-06 22:18 | NUR ---
SE RECIBE PTE ALERTA Y ORIENTADA X3 DE AMBULANCIA EN COMPANIA DE FAMILIAR EL CUAL REFIERE TRAER A PTE DEBIDO A QUE LA MISMA ESTUVO HOSPITALIZADA POR QUE LE SURGIO ACE FLEVITIS EN BRAZO DERECHO POR UN PICCLINE QUE STEVE DEJO PARA RECIBIR TRATAMIENTO EN EL HOGAR Y EL MISMO ENTIENDE QUE LE ESTA PASANDO LO MISMO EN BRAZO FARAZ. PTE FUE ZACHARY DE AIDA EL LUNES. SE MIDEN S/V Y NO SE LOGRA MEDIR B/P EN EXTREMIDADES INFERIORES. SE UBIXCA EN SECCION K
[2025-01-06] MEDS ORDERED: ACETAMINOPHEN 500 MG GEL..CAP PO ONE (23:15)
[2025-01-06] MEDS ORDERED: 0.9 % SODIUM CHLORIDE 1,000 ML IV SCH (23:15)
[2025-01-06] MEDS ORDERED: VANCOMYCIN HCL 1,000 MG VIAL IV ONE (23:30)
[2025-01-06] MEDS ORDERED: ALBUMIN HUMAN-25 0.25GM/ML (50ML) VIAL IV ONE (23:45)
[2025-01-06] MEDS ORDERED: ACETAMINOPHEN 500 MG GEL..CAP PO PRN (23:45)
[2025-01-06] MEDS ORDERED: FUROsemide 20 MG/2 ML VIAL IV SCH (23:56)
--- NOTE | 2025-01-06 23:58 | NUR ---
PACIENTE CONSULTADO Y ADMITIDO
[2025-01-07] MEDS ORDERED: MEROPENEM 500 MG/VIAL VIAL IV SCH (01:00)
[2025-01-07] MEDS ORDERED: ACETAMINOPHEN 500 MG GEL..CAP PO ONE (03:41)
[2025-01-07] MEDS ORDERED: FUROsemide 20 MG/2 ML VIAL ONE (03:41)
[2025-01-07 04:16] LABS: ERYTHROCYTE SEDIMENTATION RATE > 130 mm/hr
[2025-01-07 04:32] LABS: HEMATOCRIT 28.2 % (36.0-45.00); HEMOGLOBIN 9.4 g/dL (12.0-15.00); MEAN CELL VOLUME 88.6 fL (80.00-100.00); MEAN CORPUSCULAR HEMOGLOBIN 29.6 pg (27.00-32.0); MEAN CORPUSCULAR HGB CONC 33.4 g/dl (32.0-36.0); PLATELET COUNT 165 K/uL (150-450); RED BLOOD COUNT 3.18 M/uL (4.00-6.00); RED CELL DISTRIBUTION WIDTH 19.3 % (11.5-14.5)
[2025-01-07 04:47] LABS: ALBUMIN 2.1 gm/dL (3.4-5.0); BILIRUBIN TOTAL 1.03 mg/dL (0.3-1.2); CALCIUM 8.2 mg/dL (8.5-10.1); CREATININE SERUM 0.92 mg/dL (0.55-1.02); GFR 57.74; GLOBULINA 4.4 G/DL (2.4-3.5); POTASSIUM 4.6 mEq/L (3.5-5.1); TOTAL PROTEIN 6.5 gm/dL (6.4-8.2)
[2025-01-07] MEDS ORDERED: APIXABAN 5 MG TABLET PO SCH (05:00)
[2025-01-07] MEDS ORDERED: DOXYCYCLINE HYCLATE 100MG IV SCH (05:00)
[2025-01-07 05:25] LABS: C-REACTIVE PROTEIN 11.1 MG/DL (0.00-0.29)
[2025-01-07 05:26] LABS: INR 1.37; PROTHROMBIN TIME 14.6 SECONDS (9.0-11.5)
[2025-01-07 05:27] LABS: PARTIAL THROMBOPLASTIN TIME 34.4 SECONDS (22.0-34.0)
[2025-01-07] MEDS ORDERED: LEVOTHYROXINE SODIUM 125 MCG TABLET PO SCH (06:00)
[2025-01-07 07:00] VITALS: O2SAT 100
[2025-01-07] MEDS ORDERED: METOPROLOL SUCCINATE 50 MG TAB.SR.24H PO SCH (09:00)
[2025-01-07] MEDS ORDERED: PREDNISONE 5 MG TABLET PO SCH (09:00)
[2025-01-07] MEDS ORDERED: EMOLLIENTS 6 OZ BOTTLE TOP SCH (09:00)
[2025-01-07] MEDS ORDERED: LOSARTAN POTASSIUM 50 MG TABLET PO SCH (09:00)
[2025-01-07] MEDS ORDERED: PANTOPRAZOLE SODIUM 40 MG/VIAL VIAL IV SCH (09:00)
[2025-01-07] MEDS ORDERED: AMINO ACIDS/PROTEIN HYDROLYS 30 ML BLIST.PACK PO SCH (09:00)
[2025-01-07 09:58] LABS: HEMATOCRIT 26.3 % (36.0-45.00); MEAN CELL VOLUME 89.8 fL (80.00-100.00); MEAN CORPUSCULAR HGB CONC 32.3 g/dl (32.0-36.0); PLATELET COUNT 160 K/uL (150-450); RED BLOOD COUNT 2.93 M/uL (4.00-6.00); RED CELL DISTRIBUTION WIDTH 19.3 % (11.5-14.5)
[2025-01-07] MEDS ORDERED: COLLAGENASE CLOSTRIDIUM HIST. 30 GM TUBE TOP SCH (10:08)
[2025-01-07 10:09] LABS: CALCIUM 8.2 mg/dL (8.5-10.1); CREATININE SERUM 1.09 mg/dL (0.55-1.02); GFR 47.48; MAGNESIUM 1.8 mg/dL (1.8-2.4); PHOSPHOROUS 4.1 mg/dL (2.5-4.9); POTASSIUM 4.6 mEq/L (3.5-5.1)
[2025-01-07 10:24] LABS: HEMOGLOBIN 8.5 g/dL (12.0-15.00)
[2025-01-07 11:26] VITALS: O2SAT 98
[2025-01-07] MEDS ORDERED: FUROsemide 20 MG/2 ML VIAL IV SCH (14:15)
[2025-01-07 14:19] VITALS: O2SAT 97
[2025-01-07 16:27] LABS: PH,URINE 5.5 (5.0-8.0); URINE APPEARANCE Clear; URINE BILIRRUBIN Negative (NEGATIVE); URINE BLOOD Negative; URINE COLOR Dark Yellow; URINE GLUCOSE Negative (NEGATIVE); URINE KETONE Negative (NEGATIVE); URINE LEUKOCYTE Trace; URINE NITRATE Negative; URINE UROBILINOGEN 0.2 E.U./dl
[2025-01-07 16:28] LABS: URINE BACTERIA 13.4 uL (0.0-1933); URINE RBC 4.1 uL (0.0-20.8); URINE WBC 8.2 uL (0.0-23.2)
[2025-01-07 16:42] LABS: URINE CRYSTALS FEW /HPF; URINE MUCUS SCANT; URINE PROTEIN 100 (NEGATIVE)
[2025-01-07 16:53] VITALS: BP 105/48
[2025-01-07 17:00] VITALS: O2SAT 97
[2025-01-07] MEDS ORDERED: LOSARTAN POTASSIUM 25 MG TABLET PO SCH (17:00)
[2025-01-07] MEDS ORDERED: HYDROCORTISONE 29 G,NYSTATIN 30 GM TOP SCH (17:00)
[2025-01-07] MEDS ORDERED: LACTOBACILLUS ACIDOPHILUS 1 CAP CAP PO SCH (17:00)
[2025-01-07 21:00] VITALS: O2SAT 90
[2025-01-08] VITALS (7 sets, daily range): BP systolic 91–131; BP diastolic 53–84; O2SAT 90–99
[2025-01-08] MEDS ORDERED: DOXYCYCLINE HYCLATE 100MG IV ONE (16:54)
[2025-01-09] VITALS (7 sets, daily range): BP systolic 85–133; BP diastolic 50–70; O2SAT 90–100
[2025-01-09] MEDS ORDERED: CEFTAZIDIME/AVIBACTAM 1.25GM/100ML NSS PB IV SCH ×2 (17:00)
[2025-01-09 18:52] LABS: HEMATOCRIT 35.1 % (36.0-45.00); HEMOGLOBIN 11.4 g/dL (12.0-15.00); MEAN CELL VOLUME 88.4 fL (80.00-100.00); MEAN CORPUSCULAR HEMOGLOBIN 28.8 pg (27.00-32.0); MEAN CORPUSCULAR HGB CONC 32.6 g/dl (32.0-36.0); PLATELET COUNT 192 K/uL (150-450); RED BLOOD COUNT 3.97 M/uL (4.00-6.00); RED CELL DISTRIBUTION WIDTH 20.8 % (11.5-14.5)
[2025-01-09] MEDS ORDERED: CLONAZEPAM 1 MG TABLET PO STA (20:09)
[2025-01-10 00:27] VITALS: O2SAT 93
[2025-01-10 01:11] VITALS: O2SAT 98
[2025-01-10 05:38] VITALS: O2SAT 90
[2025-01-10] MEDS ORDERED: TETRACAINE/BENZOCAINE/BUTAMBEN 56 ML BOTTLE TOP SCH (09:00)
[2025-01-10 09:18] VITALS: O2SAT 95
[2025-01-10 11:16] LABS: PH,URINE 5.5 (5.0-8.0); URINE APPEARANCE Clear; URINE BILIRRUBIN Negative (NEGATIVE); URINE BLOOD Negative; URINE COLOR Yellow; URINE GLUCOSE Negative (NEGATIVE); URINE KETONE Negative (NEGATIVE); URINE LEUKOCYTE Negative; URINE NITRATE Negative; URINE UROBILINOGEN 0.2 E.U./dl
[2025-01-10 11:17] LABS: URINE EPITHELIAL CELLS 2.8 uL (0.0-38.8); URINE RBC 2.7 uL (0.0-20.8); URINE WBC 4.7 uL (0.0-23.2)
[2025-01-10 11:19] LABS: URINE CAST 0.58 uL (0.0-1.40); URINE PROTEIN 100 (NEGATIVE)
[2025-01-10 13:26] VITALS: O2SAT 92
[2025-01-10 15:42] LABS: HEMOGLOBIN 11.7 g/dL (12.0-15.00); MEAN CELL VOLUME 86.6 fL (80.00-100.00); MEAN CORPUSCULAR HEMOGLOBIN 28.9 pg (27.00-32.0); MEAN CORPUSCULAR HGB CONC 33.4 g/dl (32.0-36.0); PLATELET COUNT 211 K/uL (150-450); RED BLOOD COUNT 4.04 M/uL (4.00-6.00); RED CELL DISTRIBUTION WIDTH 20.5 % (11.5-14.5)
[2025-01-10 15:49] LABS: ALBUMIN 2.3 gm/dL (3.4-5.0); BILIRUBIN TOTAL 1.02 mg/dL (0.3-1.2); CALCIUM 8.5 mg/dL (8.5-10.1); CREATININE SERUM 1.06 mg/dL (0.55-1.02); GFR 49.04; GLOBULINA 4.7 G/DL (2.4-3.5); MAGNESIUM 1.6 mg/dL (1.8-2.4); POTASSIUM 4.63 mEq/L (3.5-5.1)
[2025-01-10 16:23] LABS: C-REACTIVE PROTEIN 8.03 MG/DL (0.00-0.29)
[2025-01-10] MEDS ORDERED: FUROsemide 20 MG/2 ML VIAL IV SCH (17:00)
[2025-01-10] MEDS ORDERED: ALBUMIN HUMAN 100 ML VIAL IV SCH (17:00)
[2025-01-10] MEDS ORDERED: LEVALBUTEROL HCL 0.63 MG/3 ML SOLUTION IH SCH (17:00)
[2025-01-10] MEDS ORDERED: EMOLLIENT COMBINATION NO.92 2.5 OZ BOTTLE TOP SCH (17:00)
[2025-01-10 17:50] VITALS: BP 132/44
[2025-01-10] MEDS ORDERED: CLONAZEPAM 1 MG TABLET PO ONE (22:45)
[2025-01-11 02:53] VITALS: BP 119/88
[2025-01-11 08:41] VITALS: BP 84/62; O2SAT 95
[2025-01-11] MEDS ORDERED: PANTOPRAZOLE SODIUM 40 MG TABLET.DR PO SCH (09:00)
[2025-01-11] MEDS ORDERED: MAGNESIUM SULFATE IN WATER 50 ML IV NR (09:45)
[2025-01-11] MEDS ORDERED: DIPHENHYDRAMINE HCL 12.5 MG/5 ML BLIST.PACK PO STA (13:58)
[2025-01-11] MEDS ORDERED: DOXYCYCLINE HYCLATE 100 MG CAPSULE PO SCH (17:00)
[2025-01-11] MEDS ORDERED: LEVALBUTEROL HCL 0.63 MG/3 ML SOLUTION IH SCH (17:00)
[2025-01-11 17:17] VITALS: BP 160/85; O2SAT 97
[2025-01-11] MEDS ORDERED: BUDESONIDE 0.5 MG/2 ML AMPUL.NEB IH SCH (21:00)
[2025-01-11] MEDS ORDERED: CEFTAZIDIME/AVIBACTAM 1.25GM/100ML NSS PB IV SCH (21:00)
[2025-01-11] MEDS ORDERED: DIPHENHYDRAMINE HCL 12.5 MG/5 ML BLIST.PACK PO SCH (21:00)
[2025-01-11 22:17] VITALS: BP 150/80; O2SAT 96
[2025-01-12 02:28] VITALS: BP 116/62; O2SAT 97
[2025-01-12 08:11] VITALS: BP 101/80; O2SAT 95
[2025-01-12] MEDS ORDERED: ELIQUIS2.5 MG PO (13:51)
[2025-01-12] MEDS ORDERED: BACTRIM DS TAB1 EACH PO (13:51)
== END 2025-01-12 15:25 | disposition home or self-care (01) | DRG 580 ==
LOC: ER 21:38 → SEC-K 23:53 → MEDJ 01-07 08:47
PROVIDERS: General Practice; Internal Medicine Infectious Disease; ADMIT Internal Medicine Geriatric Medicine; ATTEND Internal Medicine Geriatric Medicine
PROC: B54PZZZ Ultrasonography of Bilateral Upper Extremity Veins (ICD-10-PCS; 2025-01-06)
PROC: 0JDN0ZZ Extraction of Right Lower Leg Subcutaneous Tissue and Fascia, Open Approach (ICD-10-PCS; principal; 2025-01-07)
PROC: 4A12X4Z Monitoring of Cardiac Electrical Activity, External Approach (ICD-10-PCS; 2025-01-07)
PROC: 30233N1 Transfusion of Nonautologous Red Blood Cells into Peripheral Vein, Percutaneous Approach (ICD-10-PCS; 2025-01-08)
PROC: B24BZZZ Ultrasonography of Heart with Aorta (ICD-10-PCS; 2025-01-08)
PROC: 0JDN0ZZ Extraction of Right Lower Leg Subcutaneous Tissue and Fascia, Open Approach (ICD-10-PCS; 2025-01-10)
PROC: 0W993ZZ Drainage of Right Pleural Cavity, Percutaneous Approach (ICD-10-PCS; 2025-01-11)
DX: L03.114 Cellulitis of left upper limb (principal); D84.9 Immunodeficiency, unspecified; T80.29XA Infection following other infusion, transfusion and therapeutic injection, initial encounter; I50.30 Unspecified diastolic (congestive) heart failure; N39.0 Urinary tract infection, site not specified; L97.819 Non-pressure chronic ulcer of other part of right lower leg with unspecified severity; L40.8 Other psoriasis; E03.9 Hypothyroidism, unspecified; Z95.0 Presence of cardiac pacemaker; I11.0 Hypertensive heart disease with heart failure; E78.5 Hyperlipidemia, unspecified; B96.1 Klebsiella pneumoniae [K. pneumoniae] as the cause of diseases classified elsewhere; B96.89 Other specified bacterial agents as the cause of diseases classified elsewhere; D64.9 Anemia, unspecified; Z86.718 Personal history of other venous thrombosis and embolism; L08.9 Local infection of the skin and subcutaneous tissue, unspecified; I73.9 Peripheral vascular disease, unspecified; M32.8 Other forms of systemic lupus erythematosus

== ENCOUNTER 2025-01-23 06:18 | Inpatient (IN) | payer OTHER ==
[~2025-01-23] VITALS: Ht 152.4 cm; Wt 90.7 kg
[~2025-01-23 06:18] MED LIST changes: +BACTRIM DS TAB1 EACH PO; +ELIQUIS2.5 MG PO
[2025-01-23] MEDS ORDERED: COZAAR25 MG PO (06:34)
[2025-01-23] MEDS ORDERED: LEVOTHYROXINE25 MCG PO (06:34)
[2025-01-23] MEDS ORDERED: LOVENOX30 MG/0.3 SUBCUTANEO (06:34)
[2025-01-23] MEDS ORDERED: RAYOS5 MG PO (06:35)
[2025-01-23] MEDS ORDERED: 0.9 % SODIUM CHLORIDE 1,000 ML IV SCH (07:00)
[2025-01-23] MEDS ORDERED: DIPHENHYDRAMINE HCL 50 MG/ML VIAL 1ML IV ONE (07:00)
[2025-01-23] MEDS ORDERED: TRAMADOL HCL 50 MG TABLET PO ONE (07:00)
[2025-01-23] MEDS ORDERED: METHYLPREDNISOLONE SOD SUCC 125 MG VIAL IV ONE (07:00)
[2025-01-23] MEDS ORDERED: DIPHENHYDRAMINE HCL 50 MG/ML VIAL 1ML ONE (07:26)
[2025-01-23] MEDS ORDERED: METHYLPREDNISOLONE SOD SUCC 125 MG VIAL ONE (07:26)
[2025-01-23 08:32] LABS: HEMATOCRIT 37.7 % (36.0-45.00); HEMOGLOBIN 12.5 g/dL (12.0-15.00); MEAN CORPUSCULAR HEMOGLOBIN 29.4 pg (27.00-32.0); MEAN CORPUSCULAR HGB CONC 33.1 g/dl (32.0-36.0); PLATELET COUNT 160 K/uL (150-450); RED BLOOD COUNT 4.24 M/uL (4.00-6.00); RED CELL DISTRIBUTION WIDTH 21.4 % (11.5-14.5)
[2025-01-23 08:39] LABS: ERYTHROCYTE SEDIMENTATION RATE 128 mm/hr
[2025-01-23 08:41] LABS: ALBUMIN 2.9 gm/dL (3.4-5.0); BILIRUBIN TOTAL 1.14 mg/dL (0.3-1.2); CALCIUM 9.2 mg/dL (8.5-10.1); CREATININE SERUM 1.01 mg/dL (0.55-1.02); GFR 51.85; GLOBULINA 4.9 G/DL (2.4-3.5); POTASSIUM 5.06 mEq/L (3.5-5.1); TOTAL PROTEIN 7.8 gm/dL (6.4-8.2)
[2025-01-23 08:50] LABS: C-REACTIVE PROTEIN 1.24 MG/DL (0.00-0.29)
[2025-01-23] MEDS ORDERED: LEVALBUTEROL HCL 0.63 MG/3 ML SOLUTION IH SCH (11:12)
[2025-01-23] MEDS ORDERED: PREDNISONE 5 MG TABLET PO SCH (11:14)
[2025-01-23] MEDS ORDERED: CLONAZEPAM 0.5 MG TABLET PO PRN (11:15)
[2025-01-23] MEDS ORDERED: LOSARTAN POTASSIUM 50 MG TABLET PO SCH (11:15)
[2025-01-23] MEDS ORDERED: ENOXAPARIN SODIUM 100 MG/ML SYRINGE SUBCUTANEO SCH (11:16)
[2025-01-23] MEDS ORDERED: LACTOBACILLUS ACIDOPHILUS 1 CAP CAP PO SCH (11:17)
[2025-01-23] MEDS ORDERED: MEROPENEM 500 MG/VIAL VIAL IV SCH (13:00)
[2025-01-23] MEDS ORDERED: LINEZOLID IN DEXTROSE 5% 300 ML IV NR (13:00)
[2025-01-23 14:22] VITALS: BP 125/80
[2025-01-23 15:30] VITALS: BP 160/80; O2SAT 100
[2025-01-23] MEDS ORDERED: ENOXAPARIN SODIUM 80 MG/0.8 ML SYRINGE SUBCUTANEO SCH (17:00)
[2025-01-23] MEDS ORDERED: EMOLLIENTS 6 OZ BOTTLE TOP SCH (17:00)
[2025-01-23 18:18] VITALS: BP 153/88; O2SAT 88
[2025-01-23] MEDS ORDERED: FAMOtidine 20 MG TABLET PO SCH (21:00)
[2025-01-23] MEDS ORDERED: LINEZOLID IN DEXTROSE 5% 300 ML IV SCH (21:00)
[2025-01-24 03:39] VITALS: BP 182/90; O2SAT 96
[2025-01-24] MEDS ORDERED: LEVOTHYROXINE SODIUM 125 MCG TABLET PO SCH (06:00)
[2025-01-24] MEDS ORDERED: PANTOPRAZOLE SODIUM 40 MG TABLET.DR PO SCH (06:00)
[2025-01-24 06:31] LABS: HEMATOCRIT 35.9 % (36.0-45.00); HEMOGLOBIN 11.9 g/dL (12.0-15.00); MEAN CELL VOLUME 90.1 fL (80.00-100.00); MEAN CORPUSCULAR HEMOGLOBIN 29.9 pg (27.00-32.0); MEAN CORPUSCULAR HGB CONC 33.1 g/dl (32.0-36.0); PLATELET COUNT 143 K/uL (150-450); RED BLOOD COUNT 3.98 M/uL (4.00-6.00); RED CELL DISTRIBUTION WIDTH 22.1 % (11.5-14.5)
[2025-01-24 07:32] LABS: ALBUMIN 2.6 gm/dL (3.4-5.0); BILIRUBIN TOTAL 1.05 mg/dL (0.3-1.2); CALCIUM 8.6 mg/dL (8.5-10.1); CREATININE SERUM 1.01 mg/dL (0.55-1.02); GFR 51.85; GLOBULINA 4.5 G/DL (2.4-3.5); MAGNESIUM 1.7 mg/dL (1.8-2.4); PHOSPHOROUS 3.5 mg/dL (2.5-4.9); POTASSIUM 5.33 mEq/L (3.5-5.1); TOTAL PROTEIN 7.1 gm/dL (6.4-8.2)
[2025-01-24 07:33] LABS: TSH 5.76 uIU/mL (0.358-3.74)
[2025-01-24] MEDS ORDERED: TETRACAINE/BENZOCAINE/BUTAMBEN 56 ML BOTTLE TOP STA (08:24)
[2025-01-24 10:07] VITALS: BP 150/83; O2SAT 97
[2025-01-24] MEDS ORDERED: hydrALAZINE HCL 20 MG VIAL IV PRN (10:45)
[2025-01-24] MEDS ORDERED: COLLAGENASE CLOSTRIDIUM HIST. 30 GM TUBE TOP SCH (12:00)
[2025-01-24] MEDS ORDERED: MAG HYDROX/ALUMINUM HYD/SIMETH 30 ML BLIST.PACK PO ONE (12:19)
[2025-01-24] MEDS ORDERED: DIPHENHYDRAMINE HCL 150 MG,MAG HYDROX/ALUMINUM HYD/SIMETH 60 ML,LIDOCAINE HCL 60 ML BC SCH (13:00)
[2025-01-24 18:24] VITALS: BP 132/80
[2025-01-25 01:31] VITALS: BP 105/71; O2SAT 99
[2025-01-25] MEDS ORDERED: LEVOTHYROXINE SODIUM 137 MCG TABLET PO SCH (06:00)
[2025-01-25 09:13] VITALS: BP 166/91; O2SAT 96
[2025-01-25] MEDS ORDERED: ACETAMINOPHEN 500 MG GEL..CAP PO SCH (13:20)
[2025-01-25 16:54] VITALS: BP 145/78; O2SAT 96
[2025-01-25] MEDS ORDERED: MAG HYDROX/ALUMINUM HYD/SIMETH 30 ML BLIST.PACK PO ONE (17:08)
[2025-01-25] MEDS ORDERED: RIVAROXABAN 15 MG TABLET PO SCH (21:00)
[2025-01-25] MEDS ORDERED: LINEZOLID 600 MG TABLET PO SCH (21:00)
[2025-01-26 02:43] VITALS: BP 151/84; O2SAT 96
[2025-01-26 08:48] LABS: HEMATOCRIT 37.3 % (36.0-45.00); HEMOGLOBIN 12.1 g/dL (12.0-15.00); MEAN CELL VOLUME 90.5 fL (80.00-100.00); MEAN CORPUSCULAR HEMOGLOBIN 29.5 pg (27.00-32.0); MEAN CORPUSCULAR HGB CONC 32.6 g/dl (32.0-36.0); RED BLOOD COUNT 4.12 M/uL (4.00-6.00); RED CELL DISTRIBUTION WIDTH 22.1 % (11.5-14.5)
[2025-01-26 08:54] LABS: PLATELET COUNT 137 K/uL (150-450)
[2025-01-26 08:59] LABS: CALCIUM 8.1 mg/dL (8.5-10.1); CREATININE SERUM 0.76 mg/dL (0.55-1.02); GFR 71.99; MAGNESIUM 1.5 mg/dL (1.8-2.4); PHOSPHOROUS 2.5 mg/dL (2.5-4.9); POTASSIUM 4.48 mEq/L (3.5-5.1)
[2025-01-26 09:55] VITALS: BP 157/81
[2025-01-26] MEDS ORDERED: MAGNESIUM SULFATE IN WATER 50 ML IV NR (12:00)
[2025-01-26] MEDS ORDERED: BUDESONIDE 0.5 MG/2 ML AMPUL.NEB IH STA (13:04)
[2025-01-26] MEDS ORDERED: LEVALBUTEROL HCL 0.63 MG/3 ML SOLUTION IH STA (14:31)
[2025-01-26 17:54] VITALS: BP 140/85; O2SAT 98
[2025-01-26] MEDS ORDERED: LEVALBUTEROL HCL 0.63 MG/3 ML SOLUTION IH SCH (21:00)
[2025-01-26] MEDS ORDERED: BUDESONIDE 0.5 MG/2 ML AMPUL.NEB IH SCH (21:00)
[2025-01-27 01:10] VITALS: BP 156/71
[2025-01-27] MEDS ORDERED: AMINO ACIDS/PROTEIN HYDROLYS 30 ML BLIST.PACK PO SCH (09:00)
[2025-01-27 09:17] VITALS: BP 145/79; O2SAT 93
[2025-01-27] MEDS ORDERED: CLOTRIMAZOLE/BETAMETHASONE DIP 15 GM TUBE TOP SCH (13:00)
[2025-01-27 17:42] VITALS: BP 136/77; O2SAT 96
[2025-01-28 01:12] VITALS: BP 150/70
[2025-01-28 07:48] VITALS: BP 138/88; O2SAT 97
[2025-01-28 17:25] VITALS: BP 157/75; O2SAT 95
[2025-01-29 00:32] VITALS: BP 118/75
[2025-01-29 08:27] VITALS: BP 117/66; O2SAT 96
[2025-01-29] MEDS ORDERED: (FF) Daptomycin 50 MG/ML IV SCH (17:00)
[2025-01-30 08:36] VITALS: BP 102/67; O2SAT 97
[2025-01-30] MEDS ORDERED: DAPTOMYCIN IV SCH (09:00)
[2025-01-30 18:43] LABS: HEMATOCRIT 39.7 % (36.0-45.00); HEMOGLOBIN 12.9 g/dL (12.0-15.00); MEAN CELL VOLUME 91.2 fL (80.00-100.00); MEAN CORPUSCULAR HEMOGLOBIN 29.7 pg (27.00-32.0); MEAN CORPUSCULAR HGB CONC 32.6 g/dl (32.0-36.0); RED BLOOD COUNT 4.35 M/uL (4.00-6.00); RED CELL DISTRIBUTION WIDTH 21.9 % (11.5-14.5)
[2025-01-30 18:44] LABS: PLATELET COUNT 98 K/uL (150-450)
[2025-01-30 20:02] LABS: ALBUMIN 2.3 gm/dL (3.4-5.0); BILIRUBIN TOTAL 0.51 mg/dL (0.3-1.2); CALCIUM 8.7 mg/dL (8.5-10.1); CREATININE SERUM 1.03 mg/dL (0.55-1.02); GFR 50.69; GLOBULINA 4.7 G/DL (2.4-3.5); MAGNESIUM 1.7 mg/dL (1.8-2.4); PHOSPHOROUS 3.2 mg/dL (2.5-4.9); POTASSIUM 4.6 mEq/L (3.5-5.1)
[2025-01-31 00:59] VITALS: BP 156/73; O2SAT 98
[2025-01-31 08:05] VITALS: BP 117/91; O2SAT 99
[2025-01-31] MEDS ORDERED: MAG HYDROX/ALUMINUM HYD/SIMETH 30 ML BLIST.PACK PO ONE (08:14)
[2025-02-01] MEDS ORDERED: FLUCONAZOLE 150 MG TABLET PO ONE (13:00)
[2025-02-01] MEDS ORDERED: FUROsemide 20 MG/2 ML VIAL IV SCH (13:00)
[2025-02-01] MEDS ORDERED: ALBUMIN HUMAN 100 ML VIAL IV SCH (13:00)
[2025-02-02] MEDS ORDERED: LORATADINE 10 MG TABLET PO SCH (09:57)
[2025-02-02] MEDS ORDERED: CLONAZEPAM 0.5 MG TABLET PO PRN (10:00)
[2025-02-02] MEDS ORDERED: CLOTRIMAZOLE/BETAMETHASONE DIP 15 GM TUBE TOP SCH (13:00)
[2025-02-02 18:09] VITALS: BP 120/87; O2SAT 97
[2025-02-02] MEDS ORDERED: METHYLPREDNISOLONE SOD SUCC 40 MG VIAL IV NR (19:00)
[2025-02-02] MEDS ORDERED: TERCONAZOLE 45 GM TUBE VAG SCH (21:00)
[2025-02-02] MEDS ORDERED: CLONAZEPAM 0.5 MG TABLET PO SCH (21:00)
[2025-02-03] MEDS ORDERED: METHYLPREDNISOLONE SOD SUCC 40 MG VIAL IV SCH (01:00)
[2025-02-03 02:42] VITALS: BP 119/53; O2SAT 95
[2025-02-03 07:28] LABS: ALBUMIN 3.3 gm/dL (3.4-5.0); BILIRUBIN TOTAL 1.24 mg/dL (0.3-1.2); CALCIUM 9.1 mg/dL (8.5-10.1); CREATININE SERUM 1.07 mg/dL (0.55-1.02); GFR 48.51; GLOBULINA 4.1 G/DL (2.4-3.5); MAGNESIUM 1.7 mg/dL (1.8-2.4); PHOSPHOROUS 4.2 mg/dL (2.5-4.9); POTASSIUM 5.5 mEq/L (3.5-5.1); TOTAL PROTEIN 7.4 gm/dL (6.4-8.2)
[2025-02-03 09:10] LABS: COMPLEMENT C3 124 mg/dL (82-167); COMPLEMENT C4 27 mg/dL (12-38)
[2025-02-03] MEDS ORDERED: MAGNESIUM SULFATE IN WATER 50 ML IV NR (09:30)
[2025-02-03 09:48] VITALS: BP 135/52; O2SAT 98
[2025-02-03 13:10] LABS: DNA AB DOUBLE STRABDED < 1 IU/mL (0-9)
[2025-02-03 17:06] LABS: HEMATOCRIT 33.4 % (36.0-45.00); HEMOGLOBIN 10.8 g/dL (12.0-15.00); MEAN CORPUSCULAR HEMOGLOBIN 29.1 pg (27.00-32.0); MEAN CORPUSCULAR HGB CONC 32.3 g/dl (32.0-36.0); RED BLOOD COUNT 3.71 M/uL (4.00-6.00); RED CELL DISTRIBUTION WIDTH 21.6 % (11.5-14.5)
[2025-02-03 17:22] LABS: PLATELET COUNT 68 K/uL (150-450)
[2025-02-04 00:30] VITALS: BP 114/60; O2SAT 98
[2025-02-04] MEDS ORDERED: MAG HYDROX/ALUMINUM HYD/SIMETH 30 ML BLIST.PACK PO ONE (08:51)
[2025-02-04 09:00] LABS: INR 1.23; PROTHROMBIN TIME 13.2 SECONDS (9.0-11.5)
[2025-02-04 09:37] LABS: ALBUMIN 2.8 gm/dL (3.4-5.0); BILIRUBIN TOTAL 0.88 mg/dL (0.3-1.2); CALCIUM 8.9 mg/dL (8.5-10.1); CREATININE SERUM 1.07 mg/dL (0.55-1.02); GFR 48.51; GLOBULINA 4.1 G/DL (2.4-3.5); POTASSIUM 5.09 mEq/L (3.5-5.1); TOTAL PROTEIN 6.9 gm/dL (6.4-8.2)
[2025-02-04 10:01] VITALS: BP 148/70; O2SAT 98
[2025-02-04 12:40] LABS: HEMATOCRIT 35.5 % (36.0-45.00); HEMOGLOBIN 11.5 g/dL (12.0-15.00); MEAN CELL VOLUME 90.5 fL (80.00-100.00); MEAN CORPUSCULAR HEMOGLOBIN 29.3 pg (27.00-32.0); MEAN CORPUSCULAR HGB CONC 32.3 g/dl (32.0-36.0); RED BLOOD COUNT 3.93 M/uL (4.00-6.00); RED CELL DISTRIBUTION WIDTH 21.7 % (11.5-14.5)
[2025-02-04 12:55] LABS: PLATELET COUNT 76 K/uL (150-450)
[2025-02-04] MEDS ORDERED: MEROPENEM 500 MG/VIAL VIAL IV SCH (13:00)
[2025-02-04 13:08] LABS: ERYTHROCYTE SEDIMENTATION RATE > 130 mm/hr
[2025-02-04 13:50] LABS: MANUAL PLATELET COUNT 92
[2025-02-04] MEDS ORDERED: fentaNYL CITRATE 50 MCG/ML AMPUL IV PUSH ONE (17:15)
[2025-02-04 18:29] VITALS: BP 146/89
[2025-02-05 01:02] VITALS: BP 97/73
[2025-02-05] MEDS ORDERED: MAG HYDROX/ALUMINUM HYD/SIMETH 30 ML BLIST.PACK PO ONE (08:46)
[2025-02-05 09:50] VITALS: BP 145/90; O2SAT 96
[2025-02-05 17:53] VITALS: BP 157/88; O2SAT 100
[2025-02-06 01:26] VITALS: BP 128/81; O2SAT 92
[2025-02-06 08:26] LABS: HEMATOCRIT 33.1 % (36.0-45.00); MEAN CORPUSCULAR HEMOGLOBIN 29.7 pg (27.00-32.0); MEAN CORPUSCULAR HGB CONC 33.3 g/dl (32.0-36.0); RED BLOOD COUNT 3.72 M/uL (4.00-6.00); RED CELL DISTRIBUTION WIDTH 21.5 % (11.5-14.5)
[2025-02-06 08:33] LABS: PLATELET COUNT 81 K/uL (150-450)
[2025-02-06 08:34] LABS: ALBUMIN 2.6 gm/dL (3.4-5.0); BILIRUBIN TOTAL 0.86 mg/dL (0.3-1.2); CALCIUM 8.8 mg/dL (8.5-10.1); CREATININE SERUM 1.13 mg/dL (0.55-1.02); GFR 45.55; GLOBULINA 4.2 G/DL (2.4-3.5); POTASSIUM 4.94 mEq/L (3.5-5.1); TOTAL PROTEIN 6.8 gm/dL (6.4-8.2)
[2025-02-06 09:17] VITALS: BP 141/78; O2SAT 97
[2025-02-06] MEDS ORDERED: CEFTAZIDIME/AVIBACTAM 1.25GM/100ML NSS PB IV NR (13:00)
[2025-02-06 17:04] VITALS: BP 161/79; O2SAT 100
[2025-02-06] MEDS ORDERED: CEFTAZIDIME/AVIBACTAM 1.25GM/100ML NSS PB IV SCH (21:00)
[2025-02-07 01:32] VITALS: BP 137/80
[2025-02-07] MEDS ORDERED: METHYLPREDNISOLONE SOD SUCC 40 MG VIAL IV SCH (09:00)
[2025-02-07 09:42] LABS: HEMATOCRIT 36.7 % (36.0-45.00); HEMOGLOBIN 11.9 g/dL (12.0-15.00); MEAN CELL VOLUME 90.6 fL (80.00-100.00); MEAN CORPUSCULAR HEMOGLOBIN 29.4 pg (27.00-32.0); MEAN CORPUSCULAR HGB CONC 32.5 g/dl (32.0-36.0); RED BLOOD COUNT 4.05 M/uL (4.00-6.00); RED CELL DISTRIBUTION WIDTH 21.6 % (11.5-14.5)
[2025-02-07 09:43] LABS: PLATELET COUNT 113 K/uL (150-450)
[2025-02-07 10:15] LABS: CALCIUM 8.9 mg/dL (8.5-10.1); CREATININE SERUM 1.15 mg/dL (0.55-1.02); GFR 44.63; POTASSIUM 4.96 mEq/L (3.5-5.1)
[2025-02-07 11:19] LABS: MANUAL PLATELET COUNT 216
[2025-02-07 21:22] LABS: PLEURAL FLUID APPEARANCE CLOUDY; PLEURAL FLUID COLOR YELLOW
[2025-02-07 22:03] LABS: TP PLEURAL FLUID 1.5 g/dl
[2025-02-07 22:13] LABS: MONONUCLEAR 97 %; POLYMORPHONUCLEAR 3 %
[2025-02-08 01:59] VITALS: BP 152/84; O2SAT 96
[2025-02-08] MEDS ORDERED: PREDNISONE 10 MG TABLET PO SCH (09:00)
[2025-02-09 03:31] VITALS: O2SAT 99
[2025-02-09 18:58] VITALS: BP 169/90
[2025-02-09 22:51] VITALS: BP 169/90
[2025-02-10 02:30] VITALS: BP 118/72; O2SAT 98
[2025-02-10 06:51] LABS: HEMATOCRIT 36.4 % (36.0-45.00); HEMOGLOBIN 12.2 g/dL (12.0-15.00); MEAN CELL VOLUME 90.1 fL (80.00-100.00); MEAN CORPUSCULAR HEMOGLOBIN 30.1 pg (27.00-32.0); MEAN CORPUSCULAR HGB CONC 33.4 g/dl (32.0-36.0); PLATELET COUNT 139 K/uL (150-450); RED BLOOD COUNT 4.04 M/uL (4.00-6.00); RED CELL DISTRIBUTION WIDTH 21.5 % (11.5-14.5)
[2025-02-10 07:24] VITALS: BP 160/72
[2025-02-10 07:29] LABS: ALBUMIN 2.2 gm/dL (3.4-5.0); BILIRUBIN TOTAL 1.07 mg/dL (0.3-1.2); CALCIUM 8.2 mg/dL (8.5-10.1); CREATININE SERUM 0.91 mg/dL (0.55-1.02); GFR 58.48; GLOBULINA 3.9 G/DL (2.4-3.5); POTASSIUM 5.06 mEq/L (3.5-5.1); TOTAL PROTEIN 6.1 gm/dL (6.4-8.2)
[2025-02-10 16:51] VITALS: BP 118/83; O2SAT 98
[2025-02-10] MEDS ORDERED: RIVAROXABAN 10 MG TAB PO SCH (21:00)
[2025-02-10] MEDS ORDERED: RIVAROXABAN 15 MG TABLET PO ONE (21:33)
[2025-02-11 01:56] VITALS: BP 125/73; O2SAT 97
[2025-02-11 07:50] VITALS: BP 101/48; O2SAT 97
[2025-02-11] MEDS ORDERED: RIVAROXABAN 15 MG TABLET PO SCH (21:00)
[2025-02-12 03:04] VITALS: BP 129/82; O2SAT 98
[2025-02-12] MEDS ORDERED: CLONAZEPAM 0.5 MG TABLET PO SCH (21:00)
[2025-02-13 02:03] VITALS: BP 95/65; O2SAT 97
[2025-02-13] MEDS ORDERED: PREDNISONE 5 MG TABLET PO SCH (09:00)
[2025-02-13 09:07] VITALS: BP 149/91
[2025-02-14 01:22] VITALS: BP 100/60; O2SAT 99
[2025-02-14 09:14] VITALS: BP 91/56; O2SAT 97
[2025-02-14] MEDS ORDERED: FUROsemide 20 MG/2 ML VIAL IV SCH (10:17)
[2025-02-14 18:46] VITALS: BP 148/73; O2SAT 96
[2025-02-15 01:34] VITALS: BP 139/83
[2025-02-15 09:54] VITALS: BP 131/82; O2SAT 99
[2025-02-15 12:53] LABS: ABG PH 7.343 (7.35-7.45); ABG PO2 68.5 mmHg (80-100); ABG pCO2 39.6 mmHg (35-45); BASE EXCESS -4.3 mmol/l; SaO2 91.9 %; Tco2 22.2 mmol/l
[2025-02-15 14:06] LABS: allen test SATISFACTORY; mode ROOM AIR; puncture site RADIAL RIGHT
[2025-02-15 14:08] LABS: o2 21 %
[2025-02-15 16:47] VITALS: BP 110/70; O2SAT 96
[2025-02-15 23:07] LABS: ABG PH 7.299 (7.35-7.45); ABG pCO2 46.6 mmHg (35-45); BASE EXCESS -4.3 mmol/l; BICARBONATE 22.4 mmol/l (23-25); SaO2 92.3 %; Tco2 23.8 mmol/l; o2 21 %; puncture site RADIAL RIGHT
[2025-02-15 23:08] LABS: allen test SATISFACTORY; mode ROOM AIR
[2025-02-15 23:09] LABS: ABG PO2 73.3 mmHg (80-100)
[2025-02-16 08:00] VITALS: BP 126/75
[2025-02-16 11:49] LABS: ABG PH 7.314 (7.35-7.45); ABG PO2 66.8 mmHg (80-100); ABG pCO2 40.7 mmHg (35-45); BASE EXCESS -5.6 mmol/l; BICARBONATE 20.2 mmol/l (23-25); SaO2 90.5 %; Tco2 21.5 mmol/l
[2025-02-16 11:57] LABS: allen test SATISFACTORY; mode ROOM AIR; o2 21 %; puncture site RADIAL LEFT
[2025-02-16 17:55] VITALS: BP 128/76; O2SAT 98
[2025-02-16] MEDS ORDERED: CLONAZEPAM 1 MG TABLET PO SCH (21:00)
[2025-02-16] MEDS ORDERED: CLONAZEPAM 0.5 MG TABLET PO SCH (21:00)
[2025-02-17 18:16] VITALS: BP 142/68; O2SAT 99
[2025-02-18 02:21] VITALS: BP 132/82; O2SAT 95
[2025-02-18 09:00] VITALS: BP 152/75; O2SAT 98
[2025-02-18] MEDS ORDERED: CLONAZEPAM1 MG PO (13:06)
[2025-02-18] MEDS ORDERED: RAYOS5 MG PO (13:06)
[2025-02-18] MEDS ORDERED: LORATADINE10 MG PO (13:06)
[2025-02-18] MEDS ORDERED: XARELTO15 MG PO (13:06)
[2025-02-18] MEDS ORDERED: LEVO-T137 MCG PO (13:06)
[2025-02-18] MEDS ORDERED: FAMOTIDINE20 MG PO (13:06)
[2025-02-18] MEDS ORDERED: COZAAR50 MG PO (13:06)
[2025-02-18] MEDS ORDERED: INTESTINEX680 M1 PO (13:06)
[2025-02-18] MEDS ORDERED: PANTOPRAZOLE SO40 MG PO (13:06)
[2025-02-18] MEDS ORDERED: BUDESONIDE0.5 MG/2 M IH (13:06)
[2025-02-18] MEDS ORDERED: PROTEINEX-18 LI30 ML PO (13:06)
[2025-02-18] MEDS ORDERED: LEVALBUTEROL (13:12)
[2025-02-18 17:53] VITALS: BP 153/74; O2SAT 98
[2025-02-18] MEDS ORDERED: TRAMADOL HCL 50 MG TABLET PO ONE (19:45)
== END 2025-02-18 19:43 | disposition home or self-care (01) | DRG 579 ==
LOC: ER 06:18 → MEDJ 11:34
PROVIDERS: General Practice; Internal Medicine; Internal Medicine Infectious Disease; Radiology Vascular & Interventional Radiology; ADMIT Internal Medicine Geriatric Medicine; ATTEND Internal Medicine Geriatric Medicine
PROC: B54BZZZ Ultrasonography of Right Lower Extremity Veins (ICD-10-PCS; 2025-01-23)
PROC: 0JDN0ZZ Extraction of Right Lower Leg Subcutaneous Tissue and Fascia, Open Approach (ICD-10-PCS; principal; 2025-01-24)
PROC: 0W993ZZ Drainage of Right Pleural Cavity, Percutaneous Approach (ICD-10-PCS; 2025-02-04)
PROC: B24BZZZ Ultrasonography of Heart with Aorta (ICD-10-PCS; 2025-02-05)
PROC: BW24ZZZ Computerized Tomography (CT Scan) of Chest and Abdomen (ICD-10-PCS; 2025-02-05)
PROC: 0JDN0ZZ Extraction of Right Lower Leg Subcutaneous Tissue and Fascia, Open Approach (ICD-10-PCS; 2025-02-07)
PROC: 0W9B3ZX Drainage of Left Pleural Cavity, Percutaneous Approach, Diagnostic (ICD-10-PCS; 2025-02-07)
PROC: 0W9B3ZZ Drainage of Left Pleural Cavity, Percutaneous Approach (ICD-10-PCS; 2025-02-14)
PROC: 0JDN0ZZ Extraction of Right Lower Leg Subcutaneous Tissue and Fascia, Open Approach (ICD-10-PCS; 2025-02-16)
DX: L03.115 Cellulitis of right lower limb (principal); J18.9 Pneumonia, unspecified organism; E27.3 Drug-induced adrenocortical insufficiency; L97.119 Non-pressure chronic ulcer of right thigh with unspecified severity; N17.9 Acute kidney failure, unspecified; R78.81 Bacteremia; I50.20 Unspecified systolic (congestive) heart failure; I82.621 Acute embolism and thrombosis of deep veins of right upper extremity; I11.0 Hypertensive heart disease with heart failure; M32.8 Other forms of systemic lupus erythematosus; E03.9 Hypothyroidism, unspecified; I48.0 Paroxysmal atrial fibrillation; T38.0X5A Adverse effect of glucocorticoids and synthetic analogues, initial encounter; Y92.239 Unspecified place in hospital as the place of occurrence of the external cause; D64.9 Anemia, unspecified; Z95.0 Presence of cardiac pacemaker; J44.9 Chronic obstructive pulmonary disease, unspecified; B96.1 Klebsiella pneumoniae [K. pneumoniae] as the cause of diseases classified elsewhere; B96.5 Pseudomonas (aeruginosa) (mallei) (pseudomallei) as the cause of diseases classified elsewhere; I27.20 Pulmonary hypertension, unspecified; I73.89 Other specified peripheral vascular diseases